=== PATIENT | male | born 1965 | race Caucasian/White ===

== ENCOUNTER 2018-06-05 13:00 | Outpatient (RCR) | payer MEDICAID, SELFPAY ==
--- NOTE | 2018-05-08 14:45 | PTTR_ITS ---
DATE: 05/08/18 SUBJECTIVE: Patient reports he feels like he is 50% better since starting PT. His pain in now centralized to his lower back over L4-L5 segments. He rates his pain as a 3-4/10. When arrived to session patient was seated slouched over with majority of weight on his left side. Instructed to sit with even weight distribution and maintain upright posture. Says he has been compliant with his HEP. Has follow up appointment with PCP on SaturdayMay 12. OBJECTIVE: Manual therapy: ([id number]). Performed hamstring, single knee to chest, piriformis, ITB stretches right leg in supine. Quadriceps and hip flexor stretches in prone. Grade 2 P-A mobilizations lower lumbar segments. STM bilateral lumbar region lower back and gluteal musculature. Therapeutic procedures ([id number]). [X] HEP review: Reviewed prone on elbows and posterior pelvic tilts to ensure proper technique. Patient requires cues for TA activation during posterior pelvic tilts and to keep neck relaxed down on pillow. [X] See flow sheet: Focused on core stabilization exercises. [X] Provided skilled instruction in proper exercise performance: [X] Provided skilled manual cues to facilitate proper muscle recruitment and/or movement pattern: Requires cues to maintain posterior pelvic tilt when performing supine walk outs and cues to keep breathing. Moist heat pack to lower back with cold spot over lower lumbar segments x 12 minutes post session. Plan to continue progressing core stabilization program for patient to be able to return to previous level of function. Direct treatment time: 35 minutes Total treatment time: 47 minutes Nadia Brown, SPT Laxmi Rich, MPT
--- NOTE | 2018-05-12 15:25 | NT_ITS ---
05/12/18 No show for today's scheduled PT treatment. Alyssa Jarrett, PERFORMANCE ENGINEER
--- NOTE | 2018-05-13 09:53 | PTTR_ITS ---
DATE: 05/13/18 SUBJECTIVE: Conor states that he is feeling a little better. He saw the MD yesterday and they felt as though an MRI is warranted. He has yet to be set up for an appt. He reported that he did not do much of his exercises and none of TREVOR due to a recent bout of diverticulitis. He is feeling better now. OBJECTIVE: Manual therapy: ([id number]). lumbopelvic ROM including SKTC and rotation in hooklying. LE distractions via leg pulls. Stretching of hamstrings, ITB and piriformis in various positions. He went into prone and received STM t/o low back and buttock region focusing on the right. CFM over pelvic brim, sacral border. PRT's over right iliocostalis lumborum. PA mobs of lumbar spine. He performed some TREVOR. I applied kinesiotape to right iliocostalis lumborum using Y technique. * x Ultrasound - (x 8 mins) - [id number]: to right upper buttock at 1.0 w/cm2, 1 MHZ. ended with spot cold and MHP to low back x 10 min. Direct treatment time: 30 min Total treatment time: 40 min.
--- NOTE | 2018-05-15 14:30 | PTTR_ITS ---
DATE: 05/15/18 SUBJECTIVE: Patient reports his symptoms are still centralized to his right lower back but he is having a lot of pain. No symptoms down the leg at all. States he has been compliant with his HEP. Had difficulty sleeping last night because he could not find a comfortable position. He said he did not feel like the tape applied at last session made a difference. He reports that it did not stay on for very long. He has another follow up MD appointment in 2 weeks will proceed with MRI at that time if no improvements made. OBJECTIVE: Manual therapy: ([id number]). Stretching right single knee to chest, hamstrings, piriformis, ITB, and hip flexors/quads in modified Carlton position. STM to right lower back and along pelvic brim. Therapeutic procedures ([id number]). [X] See flow sheet: Continued with core stabilization program. [X] Provided skilled instruction in proper exercise performance: [X] Provided skilled manual cues to facilitate proper muscle recruitment and/or movement pattern: Patient still requires cues not to flex his neck and to breathe while performing posterior pelvic tilts. Patient reminded about the importance of completing HEP. Moist heat pack to lower back with cold spot to right lower back x 12 minutes post session. Plan to do aquatic therapy 2 times next week and then follow up the following week for reassessment to promote core activation and decompression of the spine. Direct treatment time: 30 minutes Total treatment time: 42 minutes Nadia Brown, SPT Laxmi Rich,MPT Addendum: Post session as patient was leaving dept he stubbed his foot causing him to slightly stumble. No fall was sustained. Patient reported no injury or irritation.
--- NOTE | 2018-05-20 11:03 | PTTR_ITS ---
DATE: 05/20/18 OBJECTIVE: * [X] Aquatic Therapy - (39984 x2): Patient completed a therapeutic exercise program in an aquatic setting for LE strengthening and core stabilization with decompression for pain relief, as per flow sheet. Pateint required cuing to maintain core activation and appropriate posture throughout session. Patient required skilled instruction for proper exercise performance and to avoid compensatory movement patterns. Patient ends with biking and traction. Direct treatment time: 30 minutes Total treatment time: 40 minutes
--- NOTE | 2018-05-22 15:44 | PTTR_ITS ---
DATE: 05/22/18 SUBJECTIVE: Conor states that he was sore following his last aquatic therapy session, but not significantly more sore than usual. OBJECTIVE: * [X] Aquatic Therapy - (00398 x1): Patient completed a therapeutic exercise program in an aquatic setting for general strengthening with decompression for pain relief, as per flow sheet. Patient was able to tolerate a progression in his program today, see flow sheet for modifications made to reps and resistance. Patient continues to require cuing for posture and appropriate movement mechanics. Patient ends with deep end biking, LE flex/ext , LE abd/add, and traction. Direct treatment time: 20 minutes Total treatment time: 40 minutes
--- NOTE | 2018-05-27 12:33 | PTTR_ITS ---
DATE: 05/27/18 SUBJECTIVE: Conor states that he had a follow up with primary therapist, Laxmi Rich, and requested to continue coming to the pool, as he feels it is helping with his pain and discomfort. OBJECTIVE: * [X] Therapeutic Procedures - (33185 x1): Patient completed a therapeutic exercise program in an aquatic setting for global strengthening and general conditioning with decompression for pain relief, as per flow sheet. He was able to tolerate a progression in his program today, with good tolerance. Patient required skilled instruction for for proper exercise performance and to avoid compensatory movement patterns. Patient ends with deep end biking, DKTC, LE flex/ext, and LE abd/add. Direct treatment time: 20 minutes Total treatment time: 45 minutes
--- NOTE | 2018-05-27 12:55 | PTTR_ITS ---
DATE: 05/27/18 SUBJECTIVE: Conor reports he feels he has improved about 50% since his evaluation. He continues to note LBP which radiates into the right leg. He has good days in the right leg, and then it will be more central to the low back. When his low back is not bothering the right leg will be more aggravating. Symptoms remain up and down. He reports that since starting the pool that he gets a good two days of relief. He feels the pool provides good symptom relief with the decompression, and feels he is able to move about in the water with much less irritation. He remains limited in his daily tasks, including lifting and gardening. He remains out of work, going on his 7th week. He is now fighting to get workman's comp, as this did happen at work. He tried to go with his private insurance initially, as he did not realize how long he'd be out. He reports they have declined a MRI. They would like him to continue with P.T. He does feel he is making gains. Is reporting (-) bowel or bladder involvement, (-) tingling / numbness. Pain is into the right sided low back, down the right leg to his ankle, but not into the foot. OBJECTIVE: Upon reassessment: ROM: Demonstrates active forward bend, fingertips 6 from the floor. Extension is limited to 15 with increased right sided LBP. Side bending is to the lateral joint lines bilaterally. Rotation is equal and symmetrical. AA LE ROM is WNL. Strength: Upon strength assessment, gross LE myotomes, hip flexors 5/5, hip extensors 4/5, hip abductors 4/5, external rotators 5/5, knee extensors 4/5 with increased pain on the right; 5/5 on the left, flexors 5/5, dorsiflexors and plantar flexors 5/5 and he is able to heel and toe walk without dysfunction. Neuro: Sensation is intact to light touch. DTRs 2+ and symmetrical at Achilles and slightly diminished at the patella on the right.and 2+ on the left. Special testing: SLR on the right limited to 45 with dural tension. Slump also irritating on the right with dural tension. (-) kaia. Manual therapy: ([id number]). Reassessment. LE distractions via leg pull. Mulligan style SLR to the right. Soft tissue mobs throughout the low back and pelvic brim. Trigger point release into the lumbar paraspinals, glute medius, glute get right sided, PA mobs at a Grade 2 lumbar levels and continued education in use of a lumbar roll. He is remove his wallet from his back pocket to reduce deviation of the spine while seated. He will continue with the aquatic program due to significant benefits and promote a walking program at home to his tolerance. Continued emphasis will be on TA activation. He was going to attend aquatic therapy post today's treatment. Direct treatment time: 30 minutes Total treatment time: 30 minutes Declined the need for modalities post session. Assessment: Conor continues to present with right sided sciatica. Increased dural tension compared to time of I.E. on the right side. Continues to present with ROM restrictions. Remains out of work. Is benefitting from the aquatic program. Will continue, at this time, for decompression, core stabilization , global strengthening, increasing his walking program to tolerance. Will reassessment Conor x2 weeks in clinic. He will continue to have regular follow ups with his PCP. Will proceed with the MRI if no improvement is seen. Plan: Continue 2x per week in the aquatic setting for the next 2 weeks. Will reassess, at that time, progressing with core stabilization, functional endurance, mobility and centralization of symptoms. Conor agrees. We will continue per M.D. order with further intervention if we see no improvements. HOLLY/travis
--- NOTE | 2018-05-29 08:53 | PTTR_ITS ---
DATE: 05/29/18 SUBJECTIVE: Conor apologizes that he is 20 minutes late today. He states that was very sore right after his aquatic therapy session on Saturday. OBJECTIVE: * [X] Therapeutic Procedures - (08348 x1): Patient completed a therapeutic exercise program in an aquatic setting for core stabilization and general strengthening, as per flow sheet. Patient tolerated a slight progression in his program today, modifications made to reps are noted on flow sheet. Patient required cuing for core activation and appropriate posture throughout session. Patient ends with deep water biking, DKTC, LE abd/add, and LE flex/ext. Direct treatment time: 15 minutes Total treatment time: 40 minutes
--- NOTE | 2018-06-03 10:57 | AT_ITS ---
06/03/18 TPx1 See flow sheet for documentation of core strengthening exercises with in an aquatic environment utilizing upper and lower extremity dynamic movements to challenge core stability with skilled cueing throughout for proper core activation. Total time: 45 minutes Direct 20 minutes with pt able to carry out his activities once instructions with intermittent cueing for proper movement.
--- NOTE | 2018-06-05 08:15 | AT_ITS ---
06/05/18 SUBJECTIVE: Pt notes that his back is pretty sore and the pain is going down the left leg. He is really frustrated with how he is feeling. He does feel better when he is in the pool although this is short lasting. OBJECTIVE: Aquatics Therapy [id number]: Pt completes his therex program as noted on his flow sheet for general strength and conditioning with emphasis on core stabilization throughout. Skilled cueing provided for appropriate movement mechanics and muscle activation. See flow sheet for specifics. Direct time: 20 minutes one on one skilled cueing requires. Total time: 50 minutes- remaining time spent on less skilled activities and cardiovascular/decompression efforts in the deep end. Meghna Soto, TAN ROOM SUPERVISOR
== END 2018-06-06 23:59 | disposition home or self-care (01) ==
LOC: PT 13:00
PROVIDERS: PCP Internal Medicine; Referring Provider Family Medicine; Visit Provider Family Medicine
DX: G57.01 Lesion of sciatic nerve, right lower limb (principal)
CPT/HCPCS: 97035; 97110; 97113; 97140

== ENCOUNTER 2018-06-26 00:56 | Outpatient (CLI) | payer MEDICAID, SELFPAY ==
--- NOTE | 2018-06-26 09:38 | DI.MRI_ITS ---
SYMPTOMS/DIAGNOSIS: CONSTANT SEVERE PAIN WITH DECREASED PATELLAR REFLEX, LUMBAR RADICULOPATHY RT, M54.16 LUMBAR SPINE MRI: Sagittal T 1 and T 2 and STIR and axial T 1 and T 2 and axial T 2 MSMA and coronal T 1 pulse sequences were performed. There is no evidence of a fracture or subluxation. A small area of increased signal is noted in the body of L 2 consistent with a fatty rest or hemangioma. Increased signal is noted involving the endplates at L 5 - S 1 and there is evidence of degenerative disc disease and a right sided disc herniation. At L 1 - 2 the disc is normal. There is no evidence of spinal stenosis. At L 2 - 3 there is some diminished disc signal consistent with partial desiccation. There is no disc herniation. There is no evidence of spinal stenosis. At L 3 - 4 a small symmetrical disc herniation is demonstrated and an annular tear is identified. There is moderately severe facet joint DJD. There is no evidence of significant spinal stenosis. At L 4 - 5 a small central disc herniation is demonstrated. There are rather severe facet joint degenerative changes and moderate bilateral foraminal stenosis is identified more severe on the left side. At L 5 - S 1 loss of disc height and diminished signal and a right sided disc herniation is identified which in combination with facet joint DJD results in bilateral severe foraminal stenosis. There is no intrinsic abnormality involving the lower dorsal cord, conus or filum terminale. SUMMARY: Findings consistent with degenerative disc disease and DJD. The findings are most severe at L 5 - S 1 where a right sided disc protrusion is demonstrated. There is severe facet joint DJD and bilateral foraminal stenosis. Please see the above discussion.
== END 2018-06-26 01:16 ==
PROVIDERS: PCP Internal Medicine; Visit Provider Family Medicine
DX: M51.17 Intervertebral disc disorders with radiculopathy, lumbosacral region (principal); M47.27 Other spondylosis with radiculopathy, lumbosacral region
CPT/HCPCS: 72148

== ENCOUNTER 2018-11-04 13:08 | Outpatient (CLI) | payer MEDICAID, SELFPAY ==
[2018-11-04 13:38] LABS: Abs Immature Grans 0.01 k/cumm (0.0-0.09); Absolute Basophil Count 0.02 k/cumm (0.0-0.2); Absolute Eosinophil Count 0.32 k/cumm (0.0-0.7); Absolute Monocyte Count 0.63 k/cumm (0.11-0.7); Absolute Neutrophil Count 2.97 k/cumm (1.2-6.7); Basophils % 0.3; Eosinophils % 5.6; HCT 43.3 % (40.0-50.0); HGB 15.1 g/dL (13.5-17.5); Immature Grans % 0.2; Lymphocytes % 31.3; Mean Corp. HGB Concentration 34.9 g/dL (32.0-36.0); Mean Corpuscular Hemoglobin 30.1 pg (27.0-33.0); Mean Corpuscular Volume 86.3 fL (80-95); Mean Platelet Volume 9.2 fL (8.0-11.0); Neutrophils % 51.6; Platelet Count 254 x1000/uL (130-400); RBC 5.02 m/cumm (4.50-6.00); RBC Distribution Width 13.1 % (11.8-14.1); White Blood Cell Count 5.75 k/cumm (4.4-10.8)
[2018-11-04 14:18] LABS: ALT 65 U/L (12-78); AST 30 U/L (15-37); Albumin 4.1 g/dL (3.4-5.0); Alkaline Phosphatase 56 U/L (46-116); Anion Gap 11.5 mmol/L (3-11); BUN 19 mg/dL (7-18); Bilirubin, Total 0.4 mg/dL (0.2-1.0); CO2 25.5 mmol/L (21.0-32.0); CREATININE 0.97 mg/dL (0.70-1.30); Calcium 9.5 mg/dL (8.5-10.1); Chloride 102 mmol/L (98-107); Glucose 139 mg/dL (70-100); Potassium 4.1 mmol/L (3.5-5.1); Sodium 139 mmol/L (136-145); Total Protein 7.4 g/dL (6.4-8.2)
== END 2018-11-04 13:28 ==
PROVIDERS: PCP Internal Medicine; Visit Provider Neurological Surgery
DX: I10 Essential (primary) hypertension (principal); M51.27 Other intervertebral disc displacement, lumbosacral region; M54.9 Dorsalgia, unspecified; Z01.818 Encounter for other preprocedural examination; Z00.00 Encounter for general adult medical examination without abnormal findings
CPT/HCPCS: 36415; 80053; 85025

== ENCOUNTER 2019-12-21 11:14 | Emergency (ER) | payer MEDICAID, SELFPAY ==
[2019-12-21] VITALS (69 sets, daily range): BP systolic 123–157; BP diastolic 76–102; PULSE 61–101; RESP 11–23; TEMP 36.6–36.9; O2SAT 89–100
--- NOTE | 2019-12-21 11:15 | ED.GENADUL_ITS ---
Discharge Plan Disposition Patient Disposition: HOME Condition: Stable Discharge Details Chief Complaint: SOB Clinical Impression: Shortness of breath, Chest pain Primary Care Provider: Deanna Edwards ED Provider: Milind Chapman Home Meds and New Rx's Prescriptions: Continued lisinopril 40 mg tablet 40 mg PO DAILY Qty: 60 RF: 4 amlodipine 5 mg tablet 5 mg PO DAILY Qty: 60 RF: 3 Discharge Instructions Instructions: Dyspnea (ED) Additional Instructions: Please return immediately to the emergency department if you develop any new or worsening symptoms, if your condition does not improve as expected, or if you become otherwise concerned. It is extremely important that you call soon as possible to make an appointment to be seen in follow-up for this visit by your primary care doctor. At this time your symptoms are concerning for coronavirus. It takes 48 to 72 hours for the test results to return. You will be contacted by [facility] staff when your results return. If you do not hear from them in 48 to 72 hours, please contact [facility]. Out of an abundance of precaution it is highly recommended that you self quarantine yourself for a total of 14 days or until symptom-free for greater than 24 to 48 hours. It would be prudent to wear a mask at all times, always wash her hands frequently, and follow-up closely with your primary care provider. It is recommended that you call your primary care provider prior to reassessment. If you are going to a health facility, please call/contact them before you arrive. At this time based on your current symptoms the CDC does not recommend admission, and there is no current clinical indication for your admission here at the hospital. However it is vitally important to monitor your symptoms closely, and if you notice any worsening of your symptoms, or any new symptoms such as worsening shortness of breath, difficulty breathing, persistent fever, worsening chills, chest pain, numbness, weakness, or fainting please call and then return immediately to the emergency department for reevaluation. Please call your primary care provider as soon as possible to make them aware of your current situation and for continued monitoring. As always, it was a pleasure participating in your medical care today. Conservative management would recommend a stress test be performed ideally wi thin the next 72 hours. Please follow-up with your primary care physician. Call tomorrow to arrange timely follow-up. Stand Alone Forms: PENDING COVID-19 TESTING, Work Release Referrals: Deanna Edwards MD [Primary Care Provider] - Discharge Data Discharge Date/Time-TO BE ENTERED AT DEPARTURE: 12/21/19 18:55 Medical Decision Making <Judi Chapman MD - Last Filed: 12/28/19 07:44> Conor Kahn is a 54 y/o man with history of hypertension, hyperlipidemia who presented to the emergency department with sharp right-sided chest pain present only with deep breathing and shortness of breath since approximately 7 AM this morning. On exam patient is well and nontoxic-appearing. Normal work of breathing. Scant wheeze bilateral upper lobes, otherwise normal lung auscultation. Hypoxia 92% on room air. No posterior calf tenderness to palpation or lower extremity edema. Concern for pneumothorax, pulmonary embolism, occult pneumonia, other respiratory infection, less likely ACS. Exam/history is not consistent with sepsis, acute aortic pathology. Plan for EKG, chest x-ray, screening labs, albuterol inhaler 2 puffs, IV, telemetry. Will monitor and reassess. CXR neg. Labs non-diagnostic, neg trop, neg d-dimer. O2 sat 95% on 2LNC. Plan for CT chest. CT chest neg over the phone per radiology. Unclear etiology of symptoms at this time. Will await troponin. Possible reactive airway disease, patient is a smoker, however sudden onset and patient reports no history of ever having prior similar symptoms. Plan to test for COVID-19. The patient looks notably clinically well, and does not demonstrate evidence of respiratory distress, significant or severe illness, or sepsis. Per CDC recommendations, coronavirus testing has been performed and is approved by the [facility]. Additionally patient currently does not demonstrate symptoms indicative of admission or further observation here. At this time based on the patient's current clinical picture symptoms are likely secondary to a non-coronavirus viral illness. Out of an abundance of precaution taking into account the cu rrent level of national concern, the patient's entire clinical picture, and CDC recommendations, the patient can be discharged home pending repeat troponin. Per CDC recommendations we will recommend a 14-day quarantine of the patient I have discussed good handwashing techniques, the importance of a mask, and we have also included CDC recommendations for home monitoring and isolation. I have extensively reviewed the treatment plan and discharge instructions with the patient. I have addressed all patient concerns at this time. The patient was made aware of what symptoms to monitor for that would warrant a return to the emergency department. I also discussed the importance of calling the patient's PCP, as well as the ED for any concerns or prior to return. Discussed the plan with the patient, they demonstrate verbal understanding and agreement with our assessment and plan at this time. Patient signed out to Dr. Milind Chapman at time of shift change with ambulatory pulse ox, repeat troponin pending. Medical Records Medical records reviewed: Yes I reviewed the patient's medical records. Imaging Data Radiologic Study: Attestation: I personally reviewed and interpreted this imaging study as follows: Radiologist's impression: EXAM: XR PORTABLE CHEST AP CLINICAL HISTORY: SOB TECHNIQUE: 2D digital imaging was performed. COMPARISON: CHEST 2 VIEWS PA,LAT from 05/21/2016 FINDINGS: MEDIASTINUM: Normal. HEART: Normal. PULMONARY VASCULATURE: Normal. LUNGS: No focal consolidations. Stable scarring in the left lower lobe. PLEURAL SPACE: No pleural effusion or pneumothorax. BONE:Normal. OTHER FINDINGS:There is poor inspiration. IMPRESSION: No acute pulmonary findings. Lab Data Lab results reviewed: Yes I reviewed the patient's lab results. Labs: 12/21/19 13:50 Nasopharynx Influenza Types A,B Antigen - Final Laboratory Tests Range/Units 12/21/19 12/21/19 12/21/19 11:20 11:20 11:20 WBC (4.4-10.8) k/cumm 5.34 RBC (4.50-6.00) m/cumm 4.93 Hgb (13.5-17.5) g/dL 14.5 Hct (40.0-50.0) % 43.5 MCV (80-95) fL 88.2 MCH (27.0-33.0) pg 29.4 MCHC (32.0-36.0) g/dL 33.3 RDW (11.8-14.1) % 13.7 Plt Count (130-400) x1000/uL 321 MPV (8.0-11.0) fL 9.0 Immature Gran % % 0.2 Neutrophils % 53.5 Lymphocytes % 31.1 Monocytes % 10.5 Eosinophils % 4.3 Basophils % 0.4 Absolute Neutrophils (1.2-6.7) k/cumm 2.86 Absolute Lymphocytes (1.2-3.4) k/cumm 1.66 Absolute Monocytes (0.11-0.7) k/cumm 0.56 Absolute Eosinophils (0.0-0.7) k/cumm 0.23 Absolute Basophils (0.0-0.2) k/cumm 0.02 D-Dimer (<500) ng/mlFEU 276 Sodium (136-145) mmol/L 139 Potassium (3.5-5.1) mmol/L 3.8 Chloride (98-107) mmol/L 103 Carbon Dioxide (21.0-32.0) mmol/L 26.6 Anion Gap (3-11) mmol/L 9.4 BUN (7-18) mg/dL 18 Creatinine (0.70-1.30) mg/dL 0.94 Estimated GFR/1.73 m2 (mL/min/1.73m2) >= 60.00 Glucose (74-106) mg/dL 137 H Calcium (8.5-10.1) mg/dL 8.9 Total Bilirubin (0.2-1.0) mg/dL 0.3 AST (15-37) U/L 24 ALT (16-63) U/L 38 Alkaline Phosphatase (46-116) U/L 57 Troponin I (<0.06) ng/Ml < 0.05 NT-Pro-B Natriuret Pep (<300) pg/mL Total Protein (6.4-8.2) g/dL 7.7 Albumin (3.4-5.0) g/dL 4.2 Range/Units 12/21/19 12/21/19 11:20 14:40 WBC (4.4-10.8) k/cumm RBC (4.50-6.00) m/cumm Hgb (13.5-17.5) g/dL Hct (40.0-50.0) % MCV (80-95) fL MCH (27.0-33.0) pg MCHC (32.0-36.0) g/dL RDW (11.8-14.1) % Plt Count (130-400) x1000/uL MPV (8.0-11.0) fL Immature Gran % % Neutrophils % Lymphocytes % Monocytes % Eosinophils % Basophils % Absolute Neutrophils (1.2-6.7) k/cumm Absolute Lymphocytes (1.2-3.4) k/cumm Absolute Monocytes (0.11-0.7) k/cumm Absolute Eosinophils (0.0-0.7) k/cumm Absolute Basophils (0.0-0.2) k/cumm D-Dimer (<500) ng/mlFEU Sodium (136-145) mmol/L Potassium (3.5-5.1) mmol/L Chloride (98-107) mmol/L Carbon Dioxide (21.0-32.0) mmol/L Anion Gap (3-11) mmol/L BUN (7-18) mg/dL Creatinine (0.70-1.30) mg/dL Estimated GFR/1.73 m2 (mL/min/1.73m2) Glucose (74-106) mg/dL Calcium (8.5-10.1) mg/dL Total Bilirubin (0.2-1.0) mg/dL AST (15-37) U/L ALT (16-63) U/L Alkaline Phosphatase (46-116) U/L Troponin I (<0.06) ng/Ml < 0.05 NT-Pro-B Natriuret Pep (<300) pg/mL 138 Total Protein (6.4-8.2) g/dL Albumin (3.4-5.0) g/dL ECG Data Attestation: I personally reviewed and interpreted this ECG (s) as follows: Interpretation: EKG shows sinus rhythm at 98, normal axis, no STEMI, nondiagnostic EKG <Milind Chapman MD - Last Filed: 12/21/19 22:39> 16:00 --care signed out by Dr. Penny Chapman with plan to follow-up repeat troponin and reassess patient for disposition. Repeat troponin negative. Repeat ECG was reviewed and interpreted by me: Subtle biphasic T waves noted V2 and V1, these were not present on prior ECG from 1120 this morning. Patient reassessed and continues to have focal, pleuritic, chest discomfort left anterior lateral lower chest. Plan will be to continue to observe patient for any change in symptomatology. I will repeat ECG and troponin. 18:25 --repeat ECG reviewed and interpreted by me: Sinus rhythm 63 bpm, no change from second ECG. Third troponin negative and unchanged. Patient is remained stable. I do not believe he has ACS. Plan will be for outpatient follow-up with PCP and will recommend stress test to expedite outpatient work- up. Usual and customary discharge instructions were provided and discussed with the patient. Imaging Data Radiologic Study: Imaging: CT Scan (chest) Radiologist's impression: FINDINGS: Pulmonary Arteries: No evidence of filling defect to suggest pulmonary emboli. Tracheobronchial tree: Patent where visualized. Mediastinum and Madison: No dominant adenopathy or fluid collection. Pulmonary parenchyma: No consolidation or dominant measurable mass. No architectural distortion. There are dependent atelectatic changes in the lung bases. Pleura: No effusion or pneumothorax. Heart: The heart is not dilated. No coronary artery calcifications are seen. No pericardial effusion. Aorta: Thoracic aorta non-dilated. No dissection Upper abdomen: Unremarkable. Bones: Mild degenerative changes. IMPRESSION: No evidence of pulmonary embolism, thoracic aortic dissection or aneurysm. Findings were discussed with the emergency department on the date of the examination. DATA REPOSITORY: All CT scans at this facility are submitted to the National Radiology Data Registry (NRDR) Dose Index Registry (DIR) with the [employer] (ACR). RADIATION OPTIMIZATION: All CT scans at this facility use at least one of these dose optimization techniques: automated exposure control; mA and/or kV adjustment per patient size (includes targeted exams where dose is matched to clinical indication); or iterative reconstruction. HPI <Judi Chapman MD - Last Filed: 12/28/19 07:44> General Mode of arrival: ambulatory . Date/Time Provider Initiated Documentation: 12/21/19 11:15 . Limitations to Documentation: no limitations . Information obtained by: patient, RN notes reviewed and old records reviewed . HPI Narrative: Conor Kahn is a 54 y/o man with history of hyperlipidemia, hypertension presenting to the emergency department with shortness of breath and chest pain. Patient reports that at approximately 7 AM this morning he began to feel sharp pain in his left chest, only present with deep breathing. Patient reports that he feels somewhat short of breath, worse with exertion. He reports that at rest he does not feel short of breath but feels like he could not take a deep breath if he wanted to. He denies any other pain. No trauma. He denies fever, cough, vomiting, diarrhea, numbness, weakness, rash, recent travel, known sick contacts, recent immobilization. Never had similar symptoms in the past. Has been eating and drinking as usual. Patient reports he smokes approximately half a pack of cigarettes per day, has smoked for 40 years. Related Data Home Medications Medication Instructions Recorded Confirmed lisinopril 40 mg tablet 40 mg PO DAILY #60 tab 09/21/19 12/25/19 amlodipine 5 mg tablet 5 mg PO DAILY #60 tab 12/09/19 12/25/19 Previous Rx's Medication Instructions Recorded lisinopril 40 mg tablet 40 mg PO DAILY #60 tab 09/21/19 amlodipine 5 mg tablet 5 mg PO DAILY #60 tab 12/09/19 Allergies Allergy/AdvReac Type Severity Reaction Status Date / Time codeine Allergy Skin Rash Unverified 12/25/19 11:08 Review of Systems <Judi Chapman MD - Last Filed: 12/28/19 07:44> Narrative: Constitutional: denies fevers Eyes: denies eye pain ENT: denies ear pain, dental pain, sore throat Cardiovascular: denies chest pain, edema Respiratory: denies cough, reports shortness of breath GI: denies abdominal pain, vomiting, diarrhea : denies flank pain MSK: denies back pain, neck pain, arthralgias, myalgias Skin: denies rash Neuro: denies headaches, numbness, weakness PFSH <Judi Chapman MD - Last Filed: 12/28/19 07:44> Medical History History of diverticulitis of colon Serrated adenoma of colon rectum 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 Pets and animals: Yes Pets and animals: cat(s) and dog(s) Sexually active: No Do you think of yourself as: straight/heterosexual Current gender identity: male What is your relationship status?: How often do you talk on the phone with friends or family?: three or more times per week How often do you get together with friends or relatives?: twice per week How often do you attend rastafarian or yarsani services?: decline to answer Do you belong to any clubs or organized social groups?: yes Panel score (0-1 are the most socially isolated patients): 3 What type of physical activity do you participate in: none Haylie/Anglican: Presybeterian Special haylie needs: No Seatbelt use: always Helmet use: Yes Helmet use: always Drive intox or ride w/intox local city driver: No Do you feel safe at home: Yes Do you feel safe in your relationship?: Yes Exam <Judi Chapman MD - Last Filed: 12/28/19 07:44> Narrative Exam Narrative: Constitutional: well and [id number], pleasant, conversing normally HENT: head atraumatic/normocephalic/normal inspection, mucous membranes moist Eyes: conjunctiva normal, sclera normal, pupils 3mm b/l Neck: no stridor, normal ROM, trachea midline Chest: normal inspection Resp: normal work of breathing, scant wheeze bilateral upper lobes, lungs otherwise clear to auscultation bilaterally, good air movement bilaterally Cardio: normal rate, normal rhythm, no murmur appreciated Back: normal inspection, no rash Skin: warm, dry, normal color, no rash Neuro: alert, not altered, grossly non-focal, normal tone Ext: no edema, no posterior calf tenderness to palpation Psych: normal mood, normal affect, normal behavior Sign Out <Judi Chapman MD - Last Filed: 12/28/19 07:44> Sign Out Data: Sign Out Comment: Patient signed out to Dr. Milind Chapman at time shift change pending repeat troponin, reassessment. Last updated by Judi Chapman MD at 12/21/19 15:21
--- NOTE | 2019-12-21 11:30 | DI.RAD_ITS ---
EXAM: XR PORTABLE CHEST AP CLINICAL HISTORY: SOB TECHNIQUE: 2D digital imaging was performed. COMPARISON: CHEST 2 VIEWS PA,LAT from 05/21/2016 FINDINGS: MEDIASTINUM: Normal. HEART: Normal. PULMONARY VASCULATURE: Normal. LUNGS: No focal consolidations. Stable scarring in the left lower lobe. PLEURAL SPACE: No pleural effusion or pneumothorax. BONE:Normal. OTHER FINDINGS:There is poor inspiration. IMPRESSION: No acute pulmonary findings. DATA REPOSITORY: RADIATION DOSE DELIVERED:
[2019-12-21 11:43] LABS: Abs Immature Grans 0.01 k/cumm (0.0-0.09); Absolute Basophil Count 0.02 k/cumm (0.0-0.2); Absolute Eosinophil Count 0.23 k/cumm (0.0-0.7); Absolute Lymphocyte Count 1.66 k/cumm (1.2-3.4); Absolute Monocyte Count 0.56 k/cumm (0.11-0.7); Absolute Neutrophil Count 2.86 k/cumm (1.2-6.7); Basophils % 0.4; Eosinophils % 4.3; HCT 43.5 % (40.0-50.0); HGB 14.5 g/dL (13.5-17.5); Immature Grans % 0.2 %; Lymphocytes % 31.1; Mean Corp. HGB Concentration 33.3 g/dL (32.0-36.0); Mean Corpuscular Hemoglobin 29.4 pg (27.0-33.0); Mean Corpuscular Volume 88.2 fL (80-95); Monocytes % 10.5; Neutrophils % 53.5; Platelet Count 321 x1000/uL (130-400); RBC 4.93 m/cumm (4.50-6.00); RBC Distribution Width 13.7 % (11.8-14.1); White Blood Cell Count 5.34 k/cumm (4.4-10.8)
[2019-12-21] MEDS: Albuterol HFA 8 GM 60 PUFF INH IH ×2 (11:47→14:01)
[2019-12-21 12:06] LABS: ALT 38 U/L (16-63); AST 24 U/L (15-37); Albumin 4.2 g/dL (3.4-5.0); Alkaline Phosphatase 57 U/L (46-116); Anion Gap 9.4 mmol/L (3-11); BUN 18 mg/dL (7-18); Bilirubin, Total 0.3 mg/dL (0.2-1.0); CO2 26.6 mmol/L (21.0-32.0); CREATININE 0.94 mg/dL (0.70-1.30); Calcium 8.9 mg/dL (8.5-10.1); Chloride 103 mmol/L (98-107); Glucose 137 mg/dL (74-106); Potassium 3.8 mmol/L (3.5-5.1); Sodium 139 mmol/L (136-145); Total Protein 7.7 g/dL (6.4-8.2); Troponin I < 0.05 ng/Ml (<0.06)
[2019-12-21 12:12] LABS: NT-proBNP 138 pg/mL (<300)
--- NOTE | 2019-12-21 12:15 | DI.CT_ITS ---
EXAM: CT CHEST PE CTA CLINICAL HISTORY: SOB, left chest pain. TECHNIQUE: Imaging Protocol: Axial CT angiography was performed with multi-slice acquisition and mu lti-planar and/or 3D reconstructions. CONTRAST MATERIAL: Intravenous: Omnipaque 350 Contrast volume:84 mL COMPARISON: ABD PELVIS WITH CONTRAST from 04/30/2011 FINDINGS: Pulmonary Arteries: No evidence of filling defect to suggest pulmonary emboli. Tracheobronchial tree: Patent where visualized. Mediastinum and Madison: No dominant adenopathy or fluid collection. Pulmonary parenchyma: No consolidation or dominant measurable mass. No architectural distortion. Ther e are dependent atelectatic changes in the lung bases. Pleura: No effusion or pneumothorax. Heart: The heart is not dilated. No coronary artery calcifications are seen. No pericardial effusion. Aorta: Thoracic aorta non-dilated. No dissection Upper abdomen: Unremarkable. Bones: Mild degenerative changes. IMPRESSION: No evidence of pulmonary embolism, thoracic aortic dissection or aneurysm. Findings were discussed with the emergency department on the date of the examination. DATA REPOSITORY: All CT scans at this facility are submitted to the National Radiology Data Registry (NRDR) Dose Index Registry (DIR) with the [employer] (ACR). RADIATION OPTIMIZATION: All CT scans at this facility use at least one of these dose optimization te chniques: automated exposure control; mA and/or kV adjustment per patient size (includes targeted exa ms where dose is matched to clinical indication); or iterative reconstruction.
[2019-12-21 12:21] LABS: D-Dimer 276 ng/mlFEU (<500)
[2019-12-21] MEDS: Omnipaque 350 MG/ML 100 ML BTL IJ (13:08)
[2019-12-21] MEDS: Normal Saline - Diluent 50 ML VIAL IV (13:08)
[2019-12-21 15:11] LABS: Troponin I < 0.05 ng/Ml (<0.06)
--- NOTE | 2019-12-21 15:30 | NUR.NOTE ---
walked in ER with pulse ox. sats 95-96% R/A. HR mid 80'sNursing Note:
[2019-12-21 18:09] LABS: Troponin I < 0.05 ng/Ml (<0.06)
--- NOTE | 2019-12-21 18:26 | NUR.NOTE ---
Nursing Note: Referral faxed to PCP for follow up. Luanne Mueller.
[2019-12-23 08:03] LABS: COVID-19 RT-PCR Result Not Detected
== END 2019-12-21 18:55 | disposition home or self-care (01) ==
PROVIDERS: Student in an Organized Health Care Education/Training Program; Emergency Provider Student in an Organized Health Care Education/Training Program; PCP Internal Medicine
DX: R06.02 Shortness of breath (principal); R07.81 Pleurodynia; R09.02 Hypoxemia; I10 Essential (primary) hypertension; F17.210 Nicotine dependence, cigarettes, uncomplicated
CPT/HCPCS: 36415; 71275; 80053; 87449; 93005; 99285; U0003; 71045; 83880; 84484; 85025; 85379; 93010; J3490

== ENCOUNTER 2019-12-25 10:55 | Emergency (ER) | payer MEDICAID, SELFPAY ==
[2019-12-25 11:00] VITALS: BP 123/77; PULSE 67; RESP 20; TEMP 36.4; O2SAT 98
--- NOTE | 2019-12-25 11:15 | DI.RAD_ITS ---
EXAM: XR CHEST 2V PA LATERAL XR CHEST 2V PA LATERAL CLINICAL HISTORY: Left sided anterior chest pain, cough Left sided anterior chest pain, cough TECHNIQUE: 2D digital imaging was performed. COMPARISON: No exams were available for comparison FINDINGS: The heart is not enlarged. The lungs are clear and well expanded. No pleural effusion seen. Mediastin al contours appear intact. IMPRESSION: Normal chest
--- NOTE | 2019-12-25 11:20 | W.ED.GENAD ---
Discharge Plan Disposition Patient Disposition: HOME Condition: Stable Discharge Details Chief Complaint: SOB Clinical Impression: Acute costochondritis Primary Care Provider: Deanna Edwards ED Provider: Hui Cash Home Meds and New Rx's Prescriptions: New hydrocodone-acetaminophen 5-325 mg tablet 1 tab PO Q8H PRN (Reason: pain) 3 Days Qty: 7 RF: 0 Continued lisinopril 40 mg tablet 40 mg PO DAILY Qty: 60 RF: 4 amlodipine 5 mg tablet 5 mg PO DAILY Qty: 60 RF: 3 Discharge Instructions Instructions: Costochondritis (ED) Additional Instructions: Follow up with primary care provider in 3-5 days. Return to ED sooner if any worsening or concerns. Increase oral fluids. Take medications as directed. Return to the ED for any worsening pain, worsening shortness of breath, productive cough, fever nausea vomiting diarrhea. Splint side with coughing. Stay as active as possible, cough and deep breathe. Referrals: Deanna Edwards MD [Primary Care Provider] - Discharge Data Discharge Date/Time-TO BE ENTERED AT DEPARTURE: 12/25/19 13:19 Medical Decision Making 54-year-old male presents with left-sided anterior chest wall pain. Patient was seen here on and had a full work-up including chest CT, troponin, d-dimer and also was tested negative for the covid 19 virus which were all within normal limits. He does smoke and he does have a history of a cough. Pain is reproducible with palpation and increases with movement. He does have some right lower lobe wheezes. He reports cutting back on smoking and has had recent weight loss. Denies fever, productive cough, abdominal pain nausea vomiting diarrhea or any other symptoms. Due to the patient's extensive work-up 4 days ago, which was largely unremarkable EKG and chest x-ray are the only things ordered at this time. Patient does not report any worsening shortness of breath or fever no productive cough. EKG reviewed by Dr. Luiz ALBRIGHT no ectopy no STEMI, rate of 63 WV interval 132 QT/QTc 384/3 normal sinus rhythm. Old EKG reviewed no significant change from previous. TECHNIQUE: 2D digital imaging was performed. COMPARISON: No exams were available for comparison FINDINGS: The heart is not enlarged. The lungs are clear and well expanded. No pleural effusion seen. Mediastinal contours appear intact. IMPRESSION: Normal chest At this time I am diagnosing patient with costochondritis due to symptoms reproducible and increasing with movement. EKG shows no change from 4 days ago chest x-ray is within normal limits. Patient given prescription for hydrocodone and Tylenol as needed pain, and was given 500 mg Tylenol p.o. in department. Patient discharged with strict return instructions, verbalized understanding. Differential diagnosis includes [place], pneumonia, COPD, occult rib fracture, pneumothorax HPI General Mode of arrival: ambulatory. Date/Time Provider Initiated Documentation: 12/25/19 10:56. Limitations to Documentation: no limitations. Information obtained by: patient. HPI Narrative: 54-year-old male presents with left-sided anterior chest wall pain. Patient was seen here on and had a full work-up including chest CT, troponin, d-dimer and also was tested negative for the covid 19 virus which were all within normal limits. He does smoke and he does have a history of a cough. Pain is reproducible with palpation and increases with movement. He does have some right lower lobe wheezes. He reports cutting back on smoking and has had recent weight loss. Denies fever, productive cough, abdominal pain nausea vomiting diarrhea or any other symptoms. Related Data Home Medications Medication Instructions Recorded Confirmed lisinopril 40 mg tablet 40 mg PO DAILY #60 tab 09/21/19 12/25/19 amlodipine 5 mg tablet 5 mg PO DAILY #60 tab 12/09/19 12/25/19 hydrocodone-acetaminophen 1 tab PO Q8H PRN 3 Days #7 tab 12/25/19 Previous Rx's Medication Instructions Recorded lisinopril 40 mg tablet 40 mg PO DAILY #60 tab 09/21/19 amlodipine 5 mg tablet 5 mg PO DAILY #60 tab 12/09/19 hydrocodone-acetaminophen 1 tab PO Q8H PRN 3 Days #7 tab 12/25/19 Allergies Allergy/AdvReac Type Severity Reaction Status Date / Time codeine Allergy Skin Rash Unverified 12/25/19 11:08 General Stated Complaint: SOB NALLELY: 3 Review of Systems Narrative: Constitutional: Negative for weight loss, alert and oriented, well groomed, normal body habitus, appears comfortable. HEENT: Denies trauma, headaches, blurry vision, nasal discharge, sore throat, trouble swallowing. Chest: Denies palpitations, irregular rhythm, hypertension. Positive anterior left-sided chest pain. Respiratory: Denies Shortness of breath, hemoptysis. GI: Denies abdominal pain, nausea, vomiting, diarrhea, constipation. Positive cough. Is a smoker. : Denies dysuria, hematuria, flank pain, rectal bleeding. Neuro: Denies dizziness, blurry vision, weakness, syncope, headache or facial numbness. Hematologic: Denies easy bruising, intolerance to heat or cold, hair loss. FOR[facility]LY [facility] Medical History History of diverticulitis of colon Serrated adenoma of colon rectum Surgical History Colonoscopy - IV Sedation 2014 Colonoscopy - MAC (08/13/16) Family History Mother No problems noted. Father , age 75 No problems noted. Sister No problems noted. Sister No problems noted. Maternal Grandfather , age 78 No problems noted. Paternal Grandfather , age 82 No problems noted. Maternal Grandmother , age 74 No problems noted. Paternal Grandmother , age 70 No problems noted. Son No problems noted. Son No problems noted. 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 Pets and animals: Yes Pets and animals: cat(s) and dog(s) Sexually active: No Do you think of yourself as: straight/heterosexual Current gender identity: male What is your relationship status?: How often do you talk on the phone with friends or family?: three or more times per week How often do you get together with friends or relatives?: twice per week How often do you attend cheondoism or anabaptism services?: decline to answer Do you belong to any clubs or organized social groups?: yes Panel score (0-1 are the most socially isolated patients): 3 What type of physical activity do you participate in: none Haylie/Anabaptism: Hindu Special haylie needs: No Seatbelt use: always Helmet use: Yes Helmet use: always Drive 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 Appears stated age. Normal body habitus. Head: Normocephalic, no trauma. Eyes: Pupils PERRLA, Red reflex noted, EOM's intact. Eyelids symmetrical withour lesions, discharge, or swelling. ENT: Bilateral TM's WNL, External ear normal to inspection, no mastoid TTP, swelling, or erythema, Nasal turbinates WNL, no nasal discharge. Normal dentition, Posterior pharynx WNL, no exudate. Chest: RRR, Normal S1, S2, distal pulses intact. Resp: Expiratory wheezes noted to the right lower lobe, no rales, or rhonchi. Musculoskeletal: Normal gait, 5/5 strength to all four extremities. Left anterior chest wall tender to palpation no crepitus or step-off palpated. No peripheral edema. Skin: No suspicious rashes or lesions. Capillary refill less than 2 sec. Neurologic: Cranial nerves II-XII intact. Alert and oriented x 3. DTR's intact. Hematologic/Lymphatic: No ecchymosis, no lymphadenopathy. Course Vital Signs Vital signs: Vital Signs Temperature 36.4 C L 12/25/19 11:00 Pulse 67 12/25/19 11:00 Respiratory Rate 20 12/25/19 11:00 Blood Pressure 123/77 12/25/19 11:00 Pulse Oximetry 98 12/25/19 11:00 Temperature 36.4 C L 12/25/19 11:00 Temperature Source Skin 12/25/19 11:00 Pulse 67 12/25/19 11:00 Respiratory Rate 20 12/25/19 11:00 Respiratory Effort 12/25/19 11:09 Blood Pressure 123/77 12/25/19 11:00 Blood Pressure Position Supine 12/25/19 11:00 Pulse Oximetry 98 12/25/19 11:00 Oxygen Delivery Method Room Air 12/25/19 11:00 Oxygen Flow Rate 0 12/25/19 11:00 Pain Level 9 12/25/19 11:00 Comment 12/25/19 11:00
[2019-12-25 12:33] VITALS: RESP 24
[2019-12-25 12:43] VITALS: BP 122/94; PULSE 72; RESP 20; TEMP 36.5; O2SAT 98
[2019-12-25] MEDS: Acetaminophen 500 MG TAB PO (12:52)
== END 2019-12-25 13:19 | disposition home or self-care (01) ==
PROVIDERS: Emergency Provider Registered Nurse Emergency; PCP Internal Medicine
DX: M94.0 Chondrocostal junction syndrome [Tietze] (principal); F17.210 Nicotine dependence, cigarettes, uncomplicated
CPT/HCPCS: 93005; 99284; 71046; 93010

== ENCOUNTER 2021-03-24 02:41 | Outpatient (CLI) | payer MEDICAID, SELFPAY ==
[2021-03-24 12:58] LABS: CREATININE 0.9 mg/dL (0.70-1.30); Calculated LDL 149 mg/dL (<100); Cholesterol 246 mg/dL (<200); HDL Cholesterol 44 mg/dL (40-60); Potassium 4.3 mmol/L (3.5-5.1); Triglyceride 269 mg/dL (<150)
[2021-03-24 13:45] LABS: Hemoglobin A1C 5.6 % (<5.7)
[2021-03-24 21:57] LABS: PSA, Screening 1.2 ng/mL (0.0-3.5)
== END 2021-03-24 02:42 | disposition home or self-care (01) ==
LOC: LOS 02:41
PROVIDERS: PCP Nurse Practitioner; Visit Provider Nurse Practitioner
DX: E78.5 Hyperlipidemia, unspecified (principal); I10 Essential (primary) hypertension; Z13.1 Encounter for screening for diabetes mellitus
CPT/HCPCS: 36415; 80061; 84153; 82565; 83036; 84132

== ENCOUNTER 2022-03-06 06:07 | Day surgery (SDC) | payer MEDICAID, SELFPAY ==
[2022-03-06 06:23] VITALS: BP 148/92; PULSE 72; RESP 18; TEMP 36.5; O2SAT 96
[2022-03-06] MEDS: Lactated Ringers 1,000 ML 80 ML IV (06:44)
--- NOTE | 2022-03-06 06:47 | ANES.PREOP_ITS ---
General Info Date of Service Date Performed: 03/06/22 Height: 5 ft 9 in Weight: 114 kg Body Mass Index (BMI): 37.0 Surgical Procedure: Operation Date: 03/06/22 07:40 Proposed Procedure Side Surgeon p Wrist ECTR Left Dustin Leavitt MD Meds Allergies and Home Medications Allergies Allergy/AdvReac Type Severity Reaction Status Date / Time codeine Allergy Skin Rash Verified 03/01/22 11:39 Home Medication Medication Instructions Recorded amlodipine 5 mg tablet 5 mg PO DAILY #90 tabs 09/26/21 lisinopril 40 mg tablet 40 mg PO DAILY #90 tabs 09/26/21 Current Visit Medications: Current Medications Generic Name Dose Route Start Last Admin Trade Name Freq PRN Reason Stop Dose Admin Ringer's Solution 1,000 mls @ 80 mls/hr 03/06/22 06:00 03/06/22 06:44 IV 04/01/22 23:59 80 mls/hr INFUSION DAVID Administration Cefazolin Sodium/Dextrose 2 gm in 50 mls @ 100 mls/hr 03/06/22 06:00 Ancef Duplex IVPB 04/01/22 23:59 PREOP DAVID IV Miscellaneous Supplies 1 each 03/06/22 06:00 Iv Access IV 04/01/22 23:59 DIRECTED DAVID Sodium Chloride 0 ml 03/06/22 06:00 Normal Saline Flush 10 Ml Syr IV 04/01/22 23:59 PRN PRN Sodium Chloride 0 ml 03/06/22 06:00 Normal Saline 10 Ml Vial IJ 04/01/22 23:59 DIRECTED PRN Sterile Water 0 ml 03/06/22 06:00 Water,Injection,Sterile 10 Ml Vial IJ 04/01/22 23:59 DIRECTED PRN PFSH Active Problems Active Problems: Problem Status Onset Code Hypertension I10 Serrated adenoma of colon 05/23/15 D12.6 Smoker 02/21/15 F17.200 Diverticulosis of large intestine 02/21/15 K57.30 Hyperlipidemia E78.5 Carpal tunnel syndrome G56.00 Common wart B07.8 Left carpal tunnel syndrome G56.02 Medical History Medical History History of diverticulitis of colon Sciatica of right side (04/02/18) His blood pressure is out of control and will add metoprolol at bedtime. We will have to have him come back for recheck of blood pressure in the next month. He has again gained weight and is inactive. Serrated adenoma of colon rectum Medical History Comments:: cough - pt reports its smokers cough/phlegm stuck in throat, able to clear with coughing. Pt reports he has had smokers cough for years. Surgical History Surgical History (Updated 03/06/22 @ 06:38 by Aimee Camejo RN) Colonoscopy - IV Sedation 2014 Colonoscopy - MAC (08/13/16) History of back surgery pt reports he had back surgery 3 years ago at [facility] Status post correction of deviated nasal septum (02/21/15) Tobacco Smoking/Tobacco Use Status: Current every day Tobacco Type: cigarettes Smoking cigarettes per day: 10 Years smoked: 40 Passive smoking exposure: Yes Second hand exposure: Yes Alcohol Alcohol Intake: current Alcohol intake frequency: holidays/special occasions only Substance Use Substance use: Occasionally Substance use type: marijuana Details: last smokes marijuana 03/02/22 Vital Signs and Lab Results Vital Signs Most Recent Vital Signs in EMR: Most Recent Vital Signs Temp Pulse Resp BP Pulse Ox 36.5 C 72 18 148/92 H 96 03/06/22 06:23 03/06/22 06:23 03/06/22 06:23 03/06/22 06:23 03/06/22 06:23 Lab Results Blood Type / Crossmatch: No Data to Display Complete Blood Count: No Data to Display Complete Metabolic Panel: No Data to Display Liver Function Panel: No Data to Display Coagulation Panel: No Data to Display Cardiac Panel: No Data to Display Arterial Blood Gas: No Data to Display Venous Blood Gas: No Data to Display Pancreas Panel: No Data to Display Thyroid Panel: No Data to Display Infectious Disease: No Data to Display Blood Cultures: No Data to Display Toxicology Panel: No Data to Display Imaging and Studies Imaging and Studies Study information below may be from another EMR and interpreted by another provider. Please see original notes in EMR for more complete details. Stress Test Summary: Impressions: - The stress electrocardiography portion appears to be a false positive. - Normal myocardial perfusion and contraction after maximal exercise. Summary: 1. Myocardial perfusion imaging: No myocardial perfusion defects noted. 2. The calculated left ventricular ejection fraction after stress: 54%. LV global systolic function is normal. No left ventricular regional motion abnormality. 3. Stress ECG conclusions: The stress ECG is positive. Wild treadmill score: -1. This score predicts a moderate risk of cardiac events. 4. Stress: The target heart rate was achieved. There is a normal resting blood pressure with an appropriate response to stress. The patient experienced no chest pain during stress. Exercise capacity is average for age Impressions: Borderline study. Summary: 1. Stress ECG conclusions: The stress ECG is borderline. Wild treadmill score: 5. This score predicts a moderate risk of cardiac events. 2. Stress: The target heart rate was achieved. The heart rate response to stress is normal. There is a normal resting blood pressure with an appropriate response to stress. The patient experienced no chest pain during stress. Exercise capacity is normal for age. Recommendations: Stress myocardial perfusion imaging should be performed. Anesthesia Assessment and Plan Anesthesia History Personal History: No History of Anesthesia Complications Family History: No Family History of Anesthesia Complications Exercise Tolerance Exercise Tolerance: Metabolic Equivalents>4 Pertinent Negatives Pertinent Negatives: No Symptoms of GERD, No Major Cardiovascular Symptoms or Complaints, No Major Pulmonary Symptoms or Complaints and No History of CVA/TIA Cardiac & Pulmonary Exam Cardiac Exam: Normal S1/S2 Heart Sounds Pulmonary Exam: Clear Bilateral Breath Sounds Implantable Cardiac Device Does patient have a Pacemaker or an ICD?: No Airway Exam Known Difficult Airway: No Mallampati Class: 2 Mouth Opening: Normal (> 3cm) Thyromental Distance: Greater than 3 cm Neck Range of Motion: Full ROM Neck Circumference: Normal Teeth Condition: Normal Dentition ASA Classification ASA Score: ASA 2 Emergency Case?: No NPO Status NPO Status: NPO Clears >2 hours, Solids >8 hours Anesthesia Plan Resuscitation Status: Full Code Anesthesia Technique: MAC Anesthesia Airway Planned: Natural Airway Monitors Used: Standard Monitors
[2022-03-06 06:55] VITALS: BMI 37.0
--- NOTE | 2022-03-06 07:10 | W.PM.DSUDISC ---
Discharge Plan Disposition Patient Disposition: HOME Condition: Good Discharge Details Reason For Visit: Left Carpal tunnel syndrome Attending Provider: Dustin Leavitt Primary Care Provider: Carlee Schaffer Home Meds and New Rx's Prescriptions: New acetaminophen 500 mg tablet 500 mg PO Q6H PRN PRN (Reason: pain) Qty: 40 3RF hydrocodone-acetaminophen 5-325 mg tablet 1 tab PO Q6H PRN (Reason: pain) Qty: 3 0RF ibuprofen 600 mg tablet 600 mg PO TID PRN (Reason: pain) Qty: 60 3RF Continued lisinopril 40 mg tablet 40 mg PO DAILY Qty: 90 4RF amlodipine 5 mg tablet 5 mg PO DAILY Qty: 90 4RF Discharge Instructions Stand Alone Forms: Tree Rodriguez Tunnel Release Referrals: Dustin Leavitt MD [ [facility] STAFF PHYSICIAN] - Activity:: Elevate Remove Dressings/Wound Care:: 48 hours Shower/Bathe:: 48 hours Diet:: As Tolerated Discharge Orders Discharge Orders: Discharge Order (Routine); Ordered 03/06/22 Ordered By: Dustin Leavitt
[2022-03-06] MEDS: ceFAZolin 2 GM/50 ML BAG IVPB (07:23)
[2022-03-06] MEDS: Lidocaine 1% Multi-Dose W/EPI 1/100,000 50 ML VIAL (07:40)
[2022-03-06] MEDS: Sodium Bicarbonate 50 MEQ/50 ML VIAL (07:40)
[2022-03-06 07:53] VITALS: BP 129/78; PULSE 78; RESP 20; TEMP 35.8; O2SAT 93
[2022-03-06 08:23] VITALS: BP 118/80; PULSE 62; RESP 20; TEMP 36; O2SAT 97
--- NOTE | 2022-03-06 08:53 | W.ANESPOSTOP ---
Postoperative Evaluation Date, Time and Location Date Performed: 03/06/22 Time Performed: 08:45 Patient Location: Day Surgery Unit Vital Signs Most Recent Imported Vital Signs: Most Recent Vital Signs Temp Pulse Resp BP Pulse Ox 36 C L 62 20 118/80 97 03/06/22 08:23 03/06/22 08:23 03/06/22 08:23 03/06/22 08:23 03/06/22 08:23 Pain Score Most Recent Pain Score: Most Recent Pain Score Pain Level 0 03/06/22 08:23 Assessment Mental Status: Awake (Alert & Oriented to Patient Baseline) Airway and Respiratory Function: Patent airway with normal (patient baseline) respiratory exam Cardiovascular Function: Hemodynamically Stable Hydration Status: Adequately Hydrated Nausea & Vomiting: No Nausea or Vomiting Pain: Pt. Denies Any Pain Peripheral Nerve Block: Patient did not receive a nerve block
--- NOTE | 2022-03-06 11:06 | W.PM.OP ---
Date of service: 03/06/22 Time of Service: 07:40 Operative Note Operative Note DATE OF PROCEDURE: 03/06/22 PRE-OP DIAGNOSIS: Left Carpal Tunnel Syndrome POST-OP DIAGNOSIS: same PROCEDURE: Left Endoscopic Carpal Tunnel Release SURGEON: Dustin Leavitt ANESTHESIA TYPE: General:No Airway Refer to Anesthesia Record ESTIMATED BLOOD LOSS: 0 PATHOLOGY: none sent TOURNIQUET TIME: 9 COMPLICATIONS: None Patient was transported to: same day Patient's condition: stable Indications: I have seen Conor in clinic for symptoms of carpal tunnel syndrome. The numbness, tingling, and pain limited function. Clinical exam findings with nerve conduction tests confirmed the diagnosis of carpal tunnel syndrome. Nonoperative measures such as bracing, time, activity modifications had been tried but disability and pain persisted. I discussed carpal tunnel release with the patient. I reviewed the risks of the procedure to include, but not limited to, bleeding, infection, pain, stiffness, incomplete release, damage to nerves or vessels, persistent numbness, recurrence. Despite these risks, the patient elected to proceed. Findings: There was tightened carpal tunnel. This was dilated and released successfully with the endoscopic with increased space within the tunnel. The antebrachial fascia was released proximally freeing the median nerve at the wrist. Procedure Description: Conor was greeted in the preoperative holding area where the correct side was identified and marked. The consent was reviewed with the patient and signed. The history and physical was updated. All questions were answered. He was taken back to the operating room. The patient was placed into the supine position on the operating room table with the left arm on an arm board. A nonsterile tourniquet was placed high onto the arm. All bony prominences were well padded. Prophylactic antibiotics in the form of Cefazolin were administered. The left arm was then prepped with Chloraprep and draped in a standard fashion with stockinette and extremity drape. A timeout to confirm correct identity, side and site, procedure, allergies, anesthesia, and medical concerns was performed. The surgical site was marked in the volar wrist creases in line with the radial border of the fourth ray. This area was anesthetized with approximately 6cc of 1% Lidocaine. The limb was then exsanguinated with an Esmarch. The skin was incised with a 15 blade, approximately 1cm. The skin only was cut and the deeper tissue was dissected bluntly with a tenotomy scissor, avoiding passing nerve and venous structures. The fascia was penetrated and opened bluntly. A two-prong skin hook was placed under this proximal fascial edge. A series of hamate finders were used to identify and dilate the carpal tunnel. Synovial elevator was used to free synovial attachments to the underside of the transverse carpal ligament. My thumb was kept in the palm to pravin the distal extent of the carpal tunnel and correctly position the hand. The Microaire endoscope was inserted without difficulty and without resistance. Excellent visualization showed horizontally running fibers of the transverse carpal ligament (TCL). The distal extent of the TCL was visualized and the end of the scope palpated with the thumb. The blade was elevated and withdrawn from distal to proximal. The TCL was split into two flaps. The endoscope was reinserted to confirm complete release and any remnant ligament was incised. The scope was withdrawn and the proximal aspect of the carpal tunnel was grossly inspected and appeared release with the median nerve visible. The antebrachial fascia at the level of the wrist was then freed from the overlying skin and then the underlying median nerve with blunt dissection. This was transected longitudinally for about 3cm proximal to the wrist incision. The wound was then irrigated with easy flow of irrigant distally and proximally. The incision was closed with a single 4-0 Nylon suture. The wound was dressed with Xeroform, Gauze, Kerlix and Leo. The tourniquet was deflated with the initial dressing and held with some pressure. Blood flow returned easily to all digits with capillary refill less than 2 seconds. The patient tolerated the procedure well and was returned to the Same Day Surgery area in a stable condition suffering no known complication.
== END 2022-03-06 08:54 | disposition home or self-care (01) ==
PROVIDERS: PCP Nurse Practitioner; Visit Provider Student in an Organized Health Care Education/Training Program
PROC: 01N54ZZ Release Median Nerve, Percutaneous Endoscopic Approach (ICD-10-PCS; CPT 29848; principal; 2022-03-06 07:30)
DX: G56.02 Carpal tunnel syndrome, left upper limb (principal); I10 Essential (primary) hypertension; E78.5 Hyperlipidemia, unspecified; F17.210 Nicotine dependence, cigarettes, uncomplicated
CPT/HCPCS: 29848; J0690; J1885

== ENCOUNTER → 2022-04-16 01:49 | Outpatient (CLI) | payer MEDICAID, SELFPAY ==
--- NOTE | 2022-04-16 07:30 | DI.CTLCSR_ITS ---
Exam(s) CT CHEST LUNG CANCER SCREEN EXAM: CT CHEST LUNG CANCER SCREEN CLINICAL HISTORY: Screening for lung cancer,CURRENT SMOKER,F17.210. TECHNIQUE: Imaging Protocol: Low Dose Technique CONTRAST MATERIAL: None COMPARISON: CR XR CHEST 2V PA LATERAL from 12/25/2019 FINDINGS: CHEST: LUNGS: There is a 6 millimeter calcified granuloma left lower lobe.. There are no ominous noncalcifi ed either lung field and no pleural effusions. No significant focal findings trachea and mainstem br onchi. MEDIASTINUM: There is no obvious hilar nor mediastinal adenopathy. CARDIAC: Heart size is normal. There is no pericardial effusion.Caliber of the thoracic aorta is wit hin normal limits. OTHER: OSSEOUS: No significant osseous lesions.. IMPRESSION: 1. 6 millimeter calcified granuloma in the left lower lobe. No ominous noncalcified pulmonary nodule s 2. No intrathoracic adenopathy. 3. Lung RADS Cat 2 - Benign Appearance / Behavior: Nodules with a very low likelihood of becoming a c linically active cancer due to size or lack of growth Lung-RADS 1.0 CATEGORIES: Category 0 - Prior chest CT exam(s) being located for comparison. Category 1 - Annual screening in 12 months. No nodules or definitely benign nodules. Category 2 - Annual screening in 12 months. Benign appearance. Nodules with low likelihood of becomin g active cancer. Category 3 - 6-month follow-up. Probably benign. Short-term follow-up suggested. Nodules with low lik elihood of becoming active cancer. Category 4A - 3-month follow-up and CT/PET if >8 mm in size. Suspicious finding. Findings which requi re additional testing. Category 4B - Findings which require additional testing and tissue sampling. Category 4X - Category 3 or 4 nodules with additional features or imaging findings that increases the suspicion of malignancy. Modifier S- Potentially clinically significant findings (non lung cancer) RADIATION DOSE DELIVERED: 92.79mGy.cm Total DLP 2.21mGy CTDIvol DATA REPOSITORY: All CT scans at this facility are submitted to the National Radiology Data Registry (NRDR) Dose Index Registry (DIR) with the [employer] (A[employer]). RADIATION OPTIMIZATION: All CT scans at this facility use at least one of these dose optimization te chniques: automated exposure control; mA and/or kV adjustment per patient size (includes targeted exa ms where dose is matched to clinical indication); or iterative reconstruction.
== END ==
PROVIDERS: PCP Nurse Practitioner; Visit Provider Nurse Practitioner
DX: Z12.2 Encounter for screening for malignant neoplasm of respiratory organs (principal); F17.210 Nicotine dependence, cigarettes, uncomplicated; J84.10 Pulmonary fibrosis, unspecified
CPT/HCPCS: 71271

== ENCOUNTER 2022-07-23 06:46 | Day surgery (SDC) | payer MEDICAID, SELFPAY ==
--- NOTE | 2022-07-23 00:45 | COLE_ITS ---
Colonoscopy Report Date of procedure: 07/23/22 Pre-op diagnosis general: Screening colonoscopy Post-op diagnosis procedure note: other (diverticulosis, colo rectal polyps) Procedure: Screening colonoscopy Surgeon: Logan Kenny Anesthesia Type: General:No Airway Estimated blood loss (mL): 30 Pathology: other (Colon polyps) Complications: None Disposition: same day Indications: Conor is a 57-year-old male here for his next screening colonoscopy Procedure Start Time: 08:50 Procedure End Time: 09:13 Retraction Time: 19 Findings: diverticulosis, polyps at 70 cm 0.5 cm, 35 cm 0.5 cm, 25 cm 1.0 cm Procedure Description: After the induction of monitored anesthetic care, and with the patient in left lateral decubitus position, I began by performing an external anorectal exam.? Perineum and skin were normal, as was the anal verge.? There was no evidence of external hemorrhoids.? Next, I performed a digital rectal exam.? I did not appreciate any abnormal findings.? Next, I advanced a colonoscope into the rectal vault.? I performed retroflexion.? Using insufflation, I then advanced the colonoscope beyond the rectal folds and into the sigmoid colon before advancing towards the cecum.? The quality of the prep was adequate.? The scope was noted to be in the cecum by identification of the ileocecal valve and appendiceal orifice.? I then began withdrawing the colonoscope using repeated irrigation as necessary for full evaluation of the colonic mucosa. Around 70 cm from the anal verge I identified a 0.5 cm polyp. ?It appeared sessile in character. ?I was able to remove this with a cold forceps. Similarly, there were polyps that 35 cm and 25 cm. Both were sessile. The polyp at 35 cm was ab out 0.5 cm in size, and the other was about 1 cm in size. I performed polypectomy using cold forceps. ?I examined the sites, and there was minimal bleeding. ?Once this was completed, I continued to withdraw the scope and examine the remainder of the colonic mucosa.?Once the scope was withdrawn to the level of the rectum, great care was taken to examine portions of the rectal folds.? Finally, the scope was withdrawn and the patient was brought to the same-day surgery recovery unit as the anesthetic wore off. ?The findings and instructions were shared with the patient prior to discharge.
--- NOTE | 2022-07-23 00:45 | W.PM.DSUDISC ---
Discharge Plan Disposition Patient Disposition: HOME Condition: Good Discharge Details Reason For Visit: Screening colonoscopy Attending Provider: Logan Kenny Primary Care Provider: Carlee Schaffer Home Meds and New Rx's Prescriptions: Continued lisinopril 40 mg tablet 40 mg PO DAILY Qty: 90 4RF amlodipine 10 mg tablet 10 mg PO DAILY Qty: 90 4RF Discontinued bisacodyl [Dulcolax (bisacodyl)] 5 mg tablet,delayed release (DR/EC) 5 mg PO ONCE Qty: 4 0RF Rx Instructions: Take according to provider's instructions for colonoscopy prep. polyethylene glycol 3350 17 gram/dose powder 17 g PO ONCE Qty: 238 0RF Rx Instructions: To be taken as directed by prescriber's office for colonoscopy prep. Discharge Instructions Instructions: Colorectal Polyps (DC), Diverticulosis (DC) Additional Instructions: 1. If tolerated, consume a soft, low fiber diet for 1-2 days. [address] Do not drive, drink alcohol, operate machinery, make critical decisions, or do activities that require coordination or balance for 24 hours. 3. Because air was put into your colon during the procedure, expelling air from your rectum (passing gas or farting) is normal. 4. You may not have a bowel movement for 1-3 days because of the colonoscopy prep. This is normal. 5. Go directly to the emergency room if you notice any of the following: Develop chills (warm to touch), or if you have a thermometer and your temperature is above 101 Difficulty breathing or difficultly swallowing Persistent vomiting Severe abdominal pain, other than gas cramps Severe chest pain Black, tarry stools Any bleeding ? exceeding one tablespoon 6. Call your physician if the site where your intravenous was started becomes red, swollen, painful, and warm to touch. 7. Your physician has reviewed your pre-procedure medications. Please continue to take those medications as previously ordered. You will be given specific information/education regarding any changes to your medications before leaving. Activity:: Activity as Tolerated Diet:: As Tolerated Discharge Orders Discharge Orders: Discharge Order (Routine); Ordered 07/23/22 Ordered By: Logan Kenny DS: Diagnosis Discharge Diagnosis (1) Colorectal polyps: Status: Acute Asessment and Plan: My office will notify you of biopsy results.
[2022-07-23 07:11] VITALS: BP 137/101; PULSE 82; RESP 18; TEMP 36.5; O2SAT 97
[2022-07-23 07:15] VITALS: BP 137/101; PULSE 82; RESP 18; TEMP 36.5; O2SAT 97
[2022-07-23] MEDS: Lactated Ringers 1,000 ML 80 ML IV (07:25)
--- NOTE | 2022-07-23 08:26 | W.ANESPRE ---
General Info Date of Service Date Performed: 07/23/22 Height: 5 ft 9 in Weight: 108.2 kg Body Mass Index (BMI): 35.2 Surgical Procedure: Operation Date: 07/23/22 08:20 Proposed Procedure Side Surgeon p Colonoscopy Leila Snell MD Meds Allergies and Home Medications Allergies Allergy/AdvReac Type Severity Reaction Status Date / Time codeine Allergy Skin Rash Verified 07/23/22 07:13 Home Medication Medication Instructions Recorded lisinopril 40 mg tablet 40 mg PO DAILY #90 tabs 09/26/21 amlodipine 10 mg tablet 10 mg PO DAILY #90 tabs 04/20/22 Current Visit Medications: Current Medications Generic Name Dose Route Start Last Admin Trade Name Freq PRN Reason Stop Dose Admin Hyoscyamine Sulfate 0.125 mg 07/23/22 00:55 Hyoscyamine 0.125 Mg Sl/Oral/Chew SL DIRECTED PRN Ringer's Solution 1,000 mls @ 80 mls/hr 07/23/22 06:00 07/23/22 07:25 IV 07/23/22 23:59 80 mls/hr INFUSION DAVID Administration IV Miscellaneous Supplies 1 each 07/23/22 06:00 Iv Access IV 07/23/22 23:59 DIRECTED DAVID Ondansetron HCl 4 mg 07/23/22 00:55 Ondansetron 4 Mg/2 Ml Vial IVP Q4H PRN PRN Nausea / Vomiting Sodium Chloride 0 ml 07/23/22 06:00 Normal Saline Flush 10 Ml Syr IV 07/23/22 23:59 PRN PRN Sodium Chloride 0 ml 07/23/22 06:00 Normal Saline 10 Ml Vial IJ 07/23/22 23:59 DIRECTED PRN Sterile Water 0 ml 07/23/22 06:00 Water,Injection,Sterile 10 Ml Vial IJ 07/23/22 23:59 DIRECTED PRN PFSH Active Problems Active Problems: Problem Status Onset Code Hypertension I10 Serrated adenoma of colon 05/23/15 D12.6 Smoker 02/21/15 F17.200 Hyperlipidemia E78.5 Common wart B07.8 Medical History Medical History (Updated 07/23/22 @ 07:15 by Ruth Spain) Carpal tunnel syndrome Diverticulosis of large intestine (02/21/15) History of deviated nasal septum History of diverticulitis of colon Hx of essential hypertension Sciatica of right side (04/02/18) His blood pressure is out of control and will add metoprolol at bedtime. We will have to have him come back for recheck of blood pressure in the next month. He has again gained weight and is inactive. Serrated adenoma of colon rectum Medical History Comments:: cough - pt reports its smokers cough/phlegm stuck in throat, able to clear with coughing. Pt reports he has had smokers cough for years. Surgical History Surgical History Colonoscopy - IV Sedation 2014 Colonoscopy - MAC (08/13/16) History of back surgery pt reports he had back surgery 3 years ago at [facility] Left carpal tunnel syndrome s/p left ECTR DOS: 03/06/22 Status post correction of deviated nasal septum (02/21/15) Tobacco Smoking/Tobacco Use Status: Current every day Tobacco Type: cigarettes Smoking cigarettes per day: 11 Years smoked: 40 Passive smoking exposure: Yes Second hand exposure: Yes Alcohol Alcohol Intake: current Alcohol intake frequency: a few times a week Alcohol type: beer and hard liquor Details: 6 pack of beer or a pint of hard liquor 2-3 times a week Substance Use Substance use: Occasionally Substance use type: marijuana Details: alcohol: t-3, few drinks. Marijuana: t-1, one hit Vital Signs and Lab Results Vital Signs Most Recent Vital Signs in EMR: Most Recent Vital Signs Temp Pulse Resp BP Pulse Ox 36.5 C 82 18 137/101 H 97 07/23/22 07:15 07/23/22 07:15 07/23/22 07:15 07/23/22 07:15 07/23/22 07:15 Lab Results Blood Type / Crossmatch: No Data to Display Complete Blood Count: No Data to Display Complete Metabolic Panel: No Data to Display Liver Function Panel: No Data to Display Coagulation Panel: No Data to Display Cardiac Panel: No Data to Display Arterial Blood Gas: No Data to Display Venous Blood Gas: No Data to Display Pancreas Panel: No Data to Display Thyroid Panel: No Data to Display Infectious Disease: No Data to Display Blood Cultures: No Data to Display Toxicology Panel: No Data to Display Imaging and Studies Imaging and Studies Study information below may be from another EMR and interpreted by another provider. Please see original notes in EMR for more complete details. Stress Test Summary: Impressions: - The stress electrocardiography portion appears to be a false positive. - Normal myocardial perfusion and contraction after maximal exercise. Summary: 1. Myocardial perfusion imaging: No myocardial perfusion defects noted. 2. The calculated left ventricular ejection fraction after stress: 54%. LV global systolic function is normal. No left ventricular regional motion abnormality. 3. Stress ECG conclusions: The stress ECG is positive. Wild treadmill score: -1. This score predicts a moderate risk of cardiac events. 4. Stress: The target heart rate was achieved. There is a normal resting blood pressure with an appropriate response to stress. The patient experienced no chest pain during stress. Exercise capacity is average for age Impressions: Borderline study. Summary: 1. Stress ECG conclusions: The stress ECG is borderline. Wild treadmill score: 5. This score predicts a moderate risk of cardiac events. 2. Stress: The target heart rate was achieved. The heart rate response to stress is normal. There is a normal resting blood pressure with an appropriate response to stress. The patient experienced no chest pain during stress. Exercise capacity is normal for age. Recommendations: Stress myocardial perfusion imaging should be performed. Anesthesia Assessment and Plan Anesthesia History Personal History: No History of Anesthesia Complications Family History: No Family History of Anesthesia Complications Exercise Tolerance Exercise Tolerance: Metabolic Equivalents>4 Pertinent Negatives Pertinent Negatives: No Symptoms of GERD and No Major Cardiovascular Symptoms or Complaints Cardiac & Pulmonary Exam Cardiac Exam: Normal S1/S2 Heart Sounds Pulmonary Exam: Clear Bilateral Breath Sounds Implantable Cardiac Device Does patient have a Pacemaker or an ICD?: No Airway Exam Known Difficult Airway: No Mallampati Class: 2 Mouth Opening: Normal (> 3cm) Thyromental Distance: Greater than 3 cm Neck Range of Motion: Full ROM Neck Circumference: Normal Teeth Condition: Normal Dentition ASA Classification ASA Score: ASA 2 Emergency Case?: No NPO Status NPO Status: NPO Clears >2 hours, Solids >8 hours Anesthesia Plan Resuscitation Status: Full Code Anesthesia Technique: General Anesthesia Airway Planned: Natural Airway Monitors Used: Standard Monitors
[2022-07-23 08:29] VITALS: BMI 35.2
--- NOTE | 2022-07-23 09:00 | BOWEL_PTH ---
PATIENT: Conor Kahn LOC: [facility] U#:[id number] AGE/SX: 57/M ROOM: RE07/23/[address]: Logan Kenny MD : 1965 BED: DIS: 07/23/2022 SPEC #: [id number] RECD: 07/23/22 12:32 STATUS: GILMER REQ #: [id number] FLORENTINO: 07/23/22 09:[address]: Logan Kenny DEPT: Surgical Specimen RECD BY: Lola Virgen ENTERED: 07/23/22 12:32 SP TYPE: Bowel OTHR DR: Carlee Schaffer, PhD [employer] Tissues: 1 - BIOPSY BOWEL 2 - BIOPSY BOWEL 3 - BIOPSY BOWEL Procedures: GROSS AND MICRO LEVEL 4 Comments: [id number]
[2022-07-23 09:22] VITALS: BP 145/98; PULSE 85; RESP 18; TEMP 36.6; O2SAT 96
[2022-07-23 09:39] VITALS: BP 139/106; PULSE 76; RESP 18; TEMP 36; O2SAT 98
--- NOTE | 2022-07-23 10:09 | W.ANESPOSTOP ---
Postoperative Evaluation Date, Time and Location Date Performed: 07/23/22 Time Performed: 09:40 Patient Location: Day Surgery Unit Vital Signs Most Recent Imported Vital Signs: Most Recent Vital Signs Temp Pulse Resp BP Pulse Ox 36 C L 76 18 139/106 H 98 07/23/22 09:39 07/23/22 09:39 07/23/22 09:39 07/23/22 09:39 07/23/22 09:39 Pain Score Most Recent Pain Score: Most Recent Pain Score Pain Level 0 07/23/22 09:39 Assessment Mental Status: Awake (Alert & Oriented to Patient Baseline) Airway and Respiratory Function: Patent airway with normal (patient baseline) respiratory exam Cardiovascular Function: Hemodynamically Stable Hydration Status: Adequately Hydrated Nausea & Vomiting: No Nausea or Vomiting Pain: Pt. Denies Any Pain Peripheral Nerve Block: Patient did not receive a nerve block
== END 2022-07-23 10:07 | disposition home or self-care (01) ==
PROVIDERS: PCP Nurse Practitioner; Visit Provider Surgery
PROC: 0DJD8ZZ Inspection of Lower Intestinal Tract, Via Natural or Artificial Opening Endoscopic (ICD-10-PCS; CPT 45378; principal; 2022-07-23 08:15)
DX: Z12.11 Encounter for screening for malignant neoplasm of colon (principal); K63.5 Polyp of colon; K57.30 Diverticulosis of large intestine without perforation or abscess without bleeding
CPT/HCPCS: 45380; 88305; J2704

== ENCOUNTER 2022-08-24 01:35 | Outpatient (CLI) | payer MEDICAID, SELFPAY ==
[2022-08-24 13:04] LABS: Anion Gap 8.4 mmol/L (3-11); BUN 15 mg/dL (7-18); CO2 25.6 mmol/L (21.0-32.0); CREATININE 0.8 mg/dL (0.70-1.30); Calcium 8.7 mg/dL (8.5-10.1); Calculated LDL 167 mg/dL (<100); Chloride 102 mmol/L (98-107); Cholesterol 245 mg/dL (<200); Estimated GFR 103.87 (mL/min/1.73m2); Glucose 118 mg/dL (74-106); HDL Cholesterol 57 mg/dL (40-60); Potassium 4.2 mmol/L (3.5-5.1); Sodium 136 mmol/L (136-145); Triglyceride 105 mg/dL (<150)
== END 2022-08-24 01:36 | disposition home or self-care (01) ==
LOC: LOS 01:35
PROVIDERS: Nurse Practitioner; PCP Nurse Practitioner Family; Visit Provider Nurse Practitioner Family
DX: I10 Essential (primary) hypertension (principal); E78.5 Hyperlipidemia, unspecified
CPT/HCPCS: 36415; 80048; 80061

== ENCOUNTER → 2023-10-25 00:29 | Outpatient (CLI) | payer MEDICAID, SELFPAY ==
--- NOTE | 2023-10-25 07:15 | DI.CTLCSR_ITS ---
Exam(s) CT CHEST LUNG CANCER SCREEN EXAM: CT CHEST LUNG CANCER SCREEN CLINICAL HISTORY: Screening for lung cancer,current smoker, f17.210 TECHNIQUE: Imaging Protocol: Axial computed tomography images with coronal and sagittal reformatted images were created and reviewed. Low dose screening protocol. COMPARISON: CT CT CHEST LUNG CANCER SCREEN from 04/16/2022 FINDINGS: Tracheobronchial tree: No bronchiectasis or mucus plugging.. Mediastinum and Madison: No dominant adenopathy or fluid collection. Pulmonary parenchyma: No consolidation or dominant measurable mass. Mild emphysematous changes. Mild atelectasis or scarring posterior right lower lobe. Lung Nodules: Calcified granuloma left lower lobe. Pleura: No effusion. No pneumothorax. Heart: The heart is not dilated. No coronary artery calcifications are seen. Aorta: Thoracic aorta non-dilated. Upper abdomen: Unremarkable. Bones: Unremarkable for age. Soft Tissues: Unremarkable. IMPRESSION: No suspicious pulmonary nodules. Lung RADS Cat 2 - Benign Appearance / Behavior: Nodules with a very low likelihood of becoming a clin ically active cancer due to size or lack of growth Lung-RADS 1.0 CATEGORIES: Category 0 - Prior chest CT exam(s) being located for comparison. Category 1 - Annual screening in 12 months. No nodules or definitely benign nodules. Category 2 - Annual screening in 12 months. Benign appearance. Nodules with low likelihood of becomin g active cancer. Category 3 - 6-month follow-up. Probably benign. Short-term follow-up suggested. Nodules with low lik elihood of becoming active cancer. Category 4A - 3-month follow-up and CT/PET if >8 mm in size. Suspicious finding. Findings which requi re additional testing. Category 4B - Findings which require additional testing and tissue sampling. Category 4X - Category 3 or 4 nodules with additional features or imaging findings that increases the suspicion of malignancy. Modifier S- Potentially clinically significant findings (non lung cancer) RADIATION DOSE DELIVERED: 94.66mGy.cm Total DLP DATA REPOSITORY: All CT scans at this facility are submitted to the National Radiology Data Registry (NRDR) Dose Index Registry (DIR) with the [employer] (ACR). RADIATION OPTIMIZATION: All CT scans at this facility use at least one of these dose optimization te chniques: automated exposure control; mA and/or kV adjustment per patient size (includes targeted exa ms where dose is matched to clinical indication); or iterative reconstruction.
== END ==
PROVIDERS: PCP Nurse Practitioner Family; Visit Provider Nurse Practitioner Family
DX: F17.210 Nicotine dependence, cigarettes, uncomplicated (principal); Z12.2 Encounter for screening for malignant neoplasm of respiratory organs
CPT/HCPCS: 71271

== ENCOUNTER 2023-12-27 01:43 | Outpatient (CLI) | payer MEDICAID, SELFPAY ==
[2023-12-27 12:21] LABS: HCT 45.5 % (40.0-50.0); HGB 14.9 g/dL (13.5-17.5); MCH 29.4 pg (27.0-33.0); MCHC 32.7 % (32.0-36.0); MCV 90 fL (80-95); MPV 9.7 fL (8.0-11.0); Platelet Count 278 10^3/uL (130-400); RBC 5.06 10^6/uL (4.36-5.78); RDW 12.9 % (11.8-14.1); RDW-SD 42.5 fL; WBC 5.74 10^3/uL (4.4-10.8)
[2023-12-27 12:53] LABS: Anion Gap 7.8 mmol/L (3-11); BUN 25 mg/dL (7-18); CO2 27.2 mmol/L (21.0-32.0); Calcium 9.6 mg/dL (8.5-10.1); Calculated LDL 156 mg/dL (<100); Chloride 107 mmol/L (98-107); Cholesterol 252 mg/dL (<200); Estimated GFR 87.78 (mL/min/1.73m2); Glucose 135 mg/dL (74-106); HDL Cholesterol 47 mg/dL (40-60); Potassium 4.7 mmol/L (3.5-5.1); Sodium 142 mmol/L (136-145); TSH (W/Ref FT4) 2.26 uIU/mL (0.36-3.74); Triglyceride 248 mg/dL (<150)
[2023-12-27 21:02] LABS: Hepatitis C Ab w Rflx HCV PCR Reactive (Negative)
[2023-12-30 12:10] LABS: HCV RNA Qualitative Undetected (Undetected)
== END 2023-12-27 01:44 | disposition home or self-care (01) ==
LOC: LOS 01:43
PROVIDERS: PCP Nurse Practitioner Family; Visit Provider Nurse Practitioner Family
DX: Z00.00 Encounter for general adult medical examination without abnormal findings (principal); E78.5 Hyperlipidemia, unspecified; I10 Essential (primary) hypertension; F17.210 Nicotine dependence, cigarettes, uncomplicated
CPT/HCPCS: 36415; 80048; 80061; 85027; 86803; 87522; 83036; 84443

== ENCOUNTER 2024-10-27 09:08 | Outpatient (CLI) | payer MEDICAID, SELFPAY ==
[2024-10-27 12:54] LABS: HCT 46.6 % (40.0-50.0); HGB 15.3 g/dL (13.5-17.5); MCH 29.3 pg (27.0-33.0); MCHC 32.8 % (32.0-36.0); MCV 89 fL (80-95); MPV 9.2 fL (8.0-11.0); Platelet Count 273 10^3/uL (130-400); RBC 5.23 10^6/uL (4.36-5.78); RDW 12.7 % (11.8-14.1); RDW-SD 41.8 fL; WBC 4.83 10^3/uL (4.4-10.8)
[2024-10-27 13:20] LABS: ALT 32 U/L (16-63); AST 21 U/L (15-37); Albumin 3.9 g/dL (3.4-5.0); Alkaline Phosphatase 67 U/L (46-116); Anion Gap 6.9 mmol/L (3-11); BUN 19 mg/dL (7-18); Bilirubin, Total 0.51 mg/dL (0.2-1.0); CO2 26.1 mmol/L (21.0-32.0); CREATININE 0.9 mg/dL (0.70-1.30); Calcium 9.3 mg/dL (8.5-10.1); Calculated LDL 168 mg/dL (<100); Chloride 105 mmol/L (98-107); Cholesterol 250 mg/dL (<200); Glucose 120 mg/dL (74-106); HDL Cholesterol 64 mg/dL (40-60); Potassium 4.3 mmol/L (3.5-5.1); Sodium 138 mmol/L (136-145); Total Protein 7.6 g/dL (6.4-8.2); Triglyceride 91 mg/dL (<150)
[2024-10-27 13:21] LABS: Hemoglobin A1C 5.9 % (<5.7)
[2024-10-27 18:22] LABS: PSA, Screening 2.6 ng/mL (<=3.5)
== END 2024-10-27 09:09 | disposition home or self-care (01) ==
LOC: LOS 09:08
PROVIDERS: PCP Nurse Practitioner Family; Referring Provider Nurse Practitioner Family; Visit Provider Nurse Practitioner Family
DX: I10 Essential (primary) hypertension; E78.5 Hyperlipidemia, unspecified; F17.200 Nicotine dependence, unspecified, uncomplicated; Z12.5 Encounter for screening for malignant neoplasm of prostate; K42.9 Umbilical hernia without obstruction or gangrene
CPT/HCPCS: 36415; 80053; 80061; 84153; 85027; 83036

== ENCOUNTER 2024-11-05 02:27 | Outpatient (CLI) | payer MEDICAID, SELFPAY ==
--- NOTE | 2024-11-05 06:15 | DI.CTLCSR_ITS ---
Exam(s) CT CHEST LUNG CANCER SCREEN EXAM: CT CHEST LUNG CANCER SCREEN CLINICAL HISTORY: Screening for lung cancer,cigarette smoker, f17.210 TECHNIQUE: Imaging Protocol: Axial computed tomography images with coronal and sagittal reformatted images were created and reviewed. Lung Computer Aided Detection (CAD) was utilized. COMPARISON: CT CT CHEST LUNG CANCER SCREEN from 04/16/[address] CHEST LUNG CANCER SCREEN from 10/25/2023 FINDINGS: Tracheobronchial tree: Patent where visualized. No bronchiectasis. Pulmonary parenchyma: No consolidation or dominant measurable mass. No architectural distortion. Ther e is a calcified granuloma in the left lower lobe. Lung Nodules: There is a stable 3 mm nodule in the right middle lobe (series 2, image 85). There is a stable perifissural nodule associated with the left major fissure (series 2, image 75). No new pul monary nodules are present. Mediastinum and Madison: No dominant adenopathy or fluid collection. The esophagus is unremarkable. Thyroid gland: Unremarkable. Lymph nodes: Unremarkable. Pleura: No effusion or pneumothorax. Heart: The heart is not dilated. No coronary artery calcifications are seen. No pericardial effusion . Aorta: Thoracic aorta non-dilated.Mild atherosclerotic calcification is present. Upper abdomen: Unremarkable. Soft Tissues: Unremarkable. Bones: Within normal limits. IMPRESSION: Stable pulmonary nodules. No new pulmonary nodules. Lung RADS Cat 2 - Benign Appearance / Behavior: Nodules with a very low likelihood of becoming a clin ically active cancer due to size or lack of growth Lung-RADS 1.0 CATEGORIES: Category 0 - Prior chest CT exam(s) being located for comparison. Category 1 - Annual screening in 12 months. No nodules or definitely benign nodules. Category 2 - Annual screening in 12 months. Benign appearance. Nodules with low likelihood of becomin g active cancer. Category 3 - 6-month follow-up. Probably benign. Short-term follow-up suggested. Nodules with low lik elihood of becoming active cancer. Category 4A - 3-month follow-up and CT/PET if >8 mm in size. Suspicious finding. Findings which requi re additional testing. Category 4B - Findings which require additional testing and tissue sampling. Suspicious finding. Category 4X - Category 3 or 4 nodules with additional features or imaging findings that increases the suspicion of malignancy. Modifier S- Potentially clinically significant finding. (Non lung cancer) RADIATION DOSE DELIVERED: 108.6mGy.cm Total DLP 108.6mGy.cmTotal DLP DATA REPOSITORY: All CT scans at this facility are submitted to the National Radiology Data Registry (NRDR) Dose Index Registry (DIR) with the [employer] (ACR). RADIATION OPTIMIZATION: All CT scans at this facility use at least one of these dose optimization te chniques: automated exposure control; mA and/or kV adjustment per patient size (includes targeted exa ms where dose is matched to clinical indication); or iterative reconstruction.
== END 2024-11-05 02:47 ==
LOC: DI 02:27
PROVIDERS: PCP Nurse Practitioner Family; Visit Provider Nurse Practitioner Family
DX: F17.210 Nicotine dependence, cigarettes, uncomplicated (principal); Z12.2 Encounter for screening for malignant neoplasm of respiratory organs
CPT/HCPCS: 71271

== ENCOUNTER 2025-01-12 10:22 | Day surgery (SDC) | payer MEDICAID, SELFPAY ==
[2025-01-12] VITALS (45 sets, daily range): BP systolic 98–134; BP diastolic 67–94; PULSE 57–86; RESP 13–25; TEMP 36.3–36.9; O2SAT 88–96; BMI 39.6
--- NOTE | 2025-01-12 10:20 | W.SURGCON ---
Date of service: 01/12/25 Time of Service: 10:20 Assessment and Plan Assessment and plan (1) Umbilical hernia: Status: Acute Assessment and plan: 59-year-old man with a primary, reducible umbilical (ventral) hernia. He understands he is at significantly increased?risk for hernia recurrence and possible wound infections considering morbid obesity and ongoing, active smoking. He wants to proceed with surgery. Plan: Laparoscopic ventral hernia repair with mesh - IPOM History of Present Illness Narrative: 59-year-old man is here for a primary ventral hernia repair. He has no new questions and there are no new symptoms or concerns. PFSH All Active Problems Pre-diabetes (Acute) Umbilical hernia (Acute) Left shoulder pain (Acute) Started about jun 2022. Work in a meat packing plant. Was lifting heavy meat and his shoulder gave out. ROM is decrease with mild pain/discomfort. Hyperplastic colon polyp (Acute) Tubular adenoma of colon (Acute) Colorectal polyps (Acute) Hypertension (Chronic) Serrated adenoma of colon (Acute 05/23/15) 2014 Smoker (Acute 02/21/15) Hyperlipidemia (Acute) Common wart (Acute) Medical History Hx of hepatitis C Had thorough liver work up years ago and everything was fine. Hx of essential hypertension History of deviated nasal septum Carpal tunnel syndrome Diverticulosis of large intestine (02/21/15) Sciatica of right side (04/02/18) His blood pressure is out of control and will add metoprolol at bedtime. We will have to have him come back for recheck of blood pressure in the next month. He has again gained weight and is inactive. Serrated adenoma of colon rectum History of diverticulitis of colon Surgical History History of back surgery pt reports he had back surgery 3 years ago at [facility] Left carpal tunnel syndrome s/p left ECTR DOS: 03/06/22 Status post correction of deviated nasal septum (02/21/15) Colonoscopy - MAC (08/13/16) 07/2022 Colonoscopy - IV Sedation 2014 Family History (Updated 10/28/24 @ 08:17 by Martha Barrios) Mother No problems noted. Father , age 75 Hypertension Alcohol use disorder Heart disease Hyperlipidemia Sister No problems noted. Sister No problems noted. Maternal Grandfather , age 78 No problems noted. Paternal Grandfather , age 82 Alcohol use disorder Maternal Grandmother , age 74 No problems noted. Paternal Grandmother , age 70 No problems noted. Son No problems noted. Son No problems noted. Social History (Updated 10/28/24 @ 08:17 by Martha Barrios) Smoking/Tobacco Use Status: Current every day Tobacco Type: cigarettes Years smoked: 40 Tobacco: How many years used: 43 Quit status: not considering quitting Second Hand Exposure: Yes Smoking risk assessment performed?: Yes Alcohol Intake: current Alcohol Intake frequency: 3 or more drinks per day Alcohol type: beer and hard liquor Details: 3-4 drinks on typical day, 6 or more drinks weekly Drug use: Daily Substance use type: former substance user Date of last use: Former Crack/Cocaine and marijuana Adopted: No Caregiver/Support person: No Foster care: No Household members: spouse and children Housing: apartment Number of Children: 2 number of grandchildren: 0 Communication Needs: Hard of Hearing and Corrective Lenses Education Level: high school Details: 12th Do you need help understanding health information?: Never 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, hand trucker Pets and animals: Yes Pets and animals: cat(s) and dog(s) Sexually active: No Do you think of yourself as: straight/heterosexual Current gender identity: male What is your relationship status?: How often do you talk on the phone with friends or family?: three or more times per week How often do you get together with friends or relatives?: three or more times per week How often do you attend alevism or jain services?: 1-3 times per year Do you belong to any clubs or organized social groups?: no Panel score (0-1 are the most socially isolated patients): 2 What type of physical activity do you participate in: none Frequency: does not exercise Haylie/Protestant: Rastafari Special haylie needs: No Agree to transfusion: Yes Seatbelt use: always Helmet use: Yes Helmet use: always Drive intox or ride w/intox school bus driver/custodian: Yes Drive intox or w/intox school bus driver/custodian: rarely Working smoke detector in home: Yes Carbon monox detector in home: Yes Firearms in home: Yes Firearms unloaded and locked: No Do you feel safe at home: Yes Do you feel safe in your relationship?: Yes Victim of physical abuse: No Victim of emotional abuse: No Victim of sexual abuse: No Exam Narrative Exam Narrative: Gen: Non-toxic, comfortable and interactive Neuro: Alert and oriented x3 Psych: Good mood and affect. Good insight and understanding into condition. Chest: Non-labored breathing, no wheezing, no visible shortness of breath. Heart: Regular Abdomen: Obese, otherwise soft, nondistended and nontender. Soft, reducible umbilical hernia.
[2025-01-12] MEDS: Heparin 5,000 UNITS/ML VIAL 5000 UNITS SC (10:44)
[2025-01-12] MEDS: Gabapentin 300 MG CAP 600 MG PO (10:47)
[2025-01-12] MEDS: Celecoxib 200 MG CAP PO (10:47)
[2025-01-12] MEDS: Acetaminophen 500 MG TAB 1000 MG PO (10:47)
[2025-01-12] MEDS: Lactated Ringers 1,000 ML 80 ML IV (11:00)
--- NOTE | 2025-01-12 12:08 | W.ANESPRE ---
General Info Date of Service Date Performed: 01/12/25 Height: 5 ft 8 in Weight: 118.1 kg Body Mass Index (BMI): 39.6 Surgical Procedure: Operation Date: 01/12/25 11:10 Proposed Procedure Side Surgeon p Hernia Ventral Laparoscopic Amadou Lares MD Meds Allergies and Home Medications Allergies Allergy/AdvReac Type Severity Reaction Status Date / Time codeine Allergy Skin Rash Verified 01/12/25 10:37 Home Medication ?Medication ?Instructions ?Recorded amlodipine 10 mg tablet 10 mg PO DAILY #90 tabs 10/27/24 lisinopril 40 mg tablet 40 mg PO DAILY #90 tabs 10/27/24 Current Visit Medications: Current Medications Generic Name Dose Route Start Last Admin Trade Name Freq PRN Reason Stop Dose Admin Heparin Sodium (Porcine) 5,000 units 01/12/25 06:00 01/12/25 10:44 Heparin 5,000 Units/Ml Vial SC 01/12/25 23:59 5,000 units PREOP DAVID Administration Ringer's Solution 1,000 mls @ 80 mls/hr 01/12/25 09:50 01/12/25 11:00 IV 02/11/25 09:49 80 mls/hr INFUSION DAVID Administration IV Miscellaneous Supplies 1 each 01/12/25 09:50 Iv Access IV 02/11/25 09:49 DIRECTED DAVID Sodium Chloride 0 ml 01/12/25 09:50 Normal Saline Flush 10 Ml Syr IVP 02/11/25 09:49 PRN PRN Sodium Chloride 0 ml 01/12/25 09:50 Normal Saline Flush 10 Ml Syr IVP 02/11/25 09:49 BID DAVID Sodium Chloride 0 ml 01/12/25 09:50 Normal Saline 10 Ml Vial IJ 02/11/25 09:49 DIRECTED PRN PFSH Active Problems Active Problems: Problem Status Onset Code Pre-diabetes Acute R73.03 Umbilical hernia Acute K42.9 Left shoulder pain Acute M25.512 Hyperplastic colon polyp Acute K63.5 Tubular adenoma of colon Acute D12.6 Colorectal polyps Acute K63.5, K62.1 Hypertension Chronic I10 Serrated adenoma of colon Acute 05/23/15 D12.6 Smoker Acute 02/21/15 F17.200 Hyperlipidemia Acute E78.5 Common wart Acute B07.8 Medical History Medical History Hx of hepatitis C Had thorough liver work up years ago and everything was fine. Hx of essential hypertension History of deviated nasal septum Carpal tunnel syndrome Diverticulosis of large intestine (02/21/15) Sciatica of right side (04/02/18) His blood pressure is out of control and will add metoprolol at bedtime. We will have to have him come back for recheck of blood pressure in the next month. He has again gained weight and is inactive. Serrated adenoma of colon rectum History of diverticulitis of colon Surgical History Surgical History History of back surgery pt reports he had back surgery 3 years ago at [facility] Left carpal tunnel syndrome s/p left ECTR DOS: 03/06/22 Status post correction of deviated nasal septum (02/21/15) Colonoscopy - MAC (08/13/16) 07/2022 Colonoscopy - IV Sedation 2014 Tobacco Smoking/Tobacco Use Status: Current every day Tobacco Type: cigarettes Years smoked: 40 Passive smoking exposure: Yes Second hand exposure: Yes Alcohol Alcohol Intake: current Alcohol intake frequency: 3 or more drinks per day Alcohol type: beer and hard liquor Details: 3-4 drinks on typical day, 6 or more drinks weekly Substance Use Substance use: Daily Substance use type: former substance user Date of last use: Former Crack/Cocaine and marijuana Vital Signs and Lab Results Vital Signs Most Recent Vital Signs in EMR: Most Recent Vital Signs Temp Pulse Resp BP Pulse Ox 36.3 C L 71 16 134/94 H 96 01/12/25 10:23 01/12/25 10:23 01/12/25 10:23 01/12/25 10:23 01/12/25 10:23 Lab Results Blood Type / Crossmatch: No Data to Display Complete Blood Count: No Data to Display Complete Metabolic Panel: No Data to Display Liver Function Panel: No Data to Display Coagulation Panel: No Data to Display Cardiac Panel: No Data to Display Arterial Blood Gas: No Data to Display Venous Blood Gas: No Data to Display Pancreas Panel: No Data to Display Thyroid Panel: No Data to Display Infectious Disease: No Data to Display Blood Cultures: No Data to Display Toxicology Panel: No Data to Display Imaging and Studies Imaging and Studies Study information below may be from another EMR and interpreted by another provider. Please see original notes in EMR for more complete details. Stress Test Summary: Impressions: - The stress electrocardiography portion appears to be a false positive. - Normal myocardial perfusion and contraction after maximal exercise. Summary: 1. Myocardial perfusion imaging: No myocardial perfusion defects noted. 2. The calculated left ventricular ejection fraction after stress: 54%. LV global systolic function is normal. No left ventricular regional motion abnormality. 3. Stress ECG conclusions: The stress ECG is positive. Wild treadmill score: -1. This score predicts a moderate risk of cardiac events. 4. Stress: The target heart rate was achieved. There is a normal resting blood pressure with an appropriate response to stress. The patient experienced no chest pain during stress. Exercise capacity is average for age Impressions: Borderline study. Summary: 1. Stress ECG conclusions: The stress ECG is borderline. Wild treadmill score: 5. This score predicts a moderate risk of cardiac events. 2. Stress: The target heart rate was achieved. The heart rate response to stress is normal. There is a normal resting blood pressure with an appropriate response to stress. The patient experienced no chest pain during stress. Exercise capacity is normal for age. Recommendations: Stress myocardial perfusion imaging should be performed. Anesthesia Assessment and Plan Anesthesia History Personal History: No History of Anesthesia Complications Family History: No Family History of Anesthesia Complications Exercise Tolerance Exercise Tolerance: Metabolic Equivalents>4 Cardiac & Pulmonary Exam Cardiac Exam: Normal S1/S2 Heart Sounds Pulmonary Exam: Wheezing Present (RLL) Implantable Cardiac Device Does patient have a Pacemaker or an ICD?: No Airway Exam Known Difficult Airway: No Mallampati Class: 2 Mouth Opening: Normal (> 3cm) Thyromental Distance: Greater than 3 cm Neck Range of Motion: Full ROM Neck Circumference: Normal Teeth Condition: Normal Dentition ASA Classification ASA Score: ASA 3 Emergency Case?: No NPO Status NPO Status: NPO Clears >2 hours, Solids >8 hours Anesthesia Plan Resuscitation Status: Full Code Anesthesia Technique: General Anesthesia Airway Planned: Endotracheal Tube Monitors Used: Standard Monitors and SedLine
--- NOTE | 2025-01-12 13:03 | W.PM.DSUDISC ---
Date of service: 01/12/25 Discharge Plan Disposition Patient Disposition: Home Condition: Good Discharge Details Attending Provider: Amadou Lares Primary Care Provider: Saadia Morrow Home Meds and New Rx's Prescriptions: No Action amlodipine 10 mg tablet 10 mg PO DAILY Qty: 90 4RF lisinopril 40 mg tablet 40 mg PO DAILY Qty: 90 4RF Discharge Instructions Additional Instructions: INSTRUCTIONS: Incisions: Remove the tape and gauze on Saturday. After that, keep clean and dry but they do not need to be covered. It is okay to shower but no tub bathing for 1 week. You can peel the glue off after 1 week. Activity: As tolerated. Light duty without any heavy lifting/pulling or pushing for 6-8 weeks. Use abdominal binder at all times when up and out of bed for 8 weeks. You don't need to wear it while sleeping. Diet: Regular diet as tolerated. Medications: Resume all of your usual/regular home medications. Follow-up: If you are having any issues or concerns call the surgery office immediately. If you want to have a routine follow-up that is perfectly fine and you can call and schedule an. If everything is otherwise going well, you do not need to follow-up. Pain control: Take Tylenol, 1000 mg, every 6 hours on a schedule for the next 3 days. You can use ibuprofen in addition to Tylenol if needed. Ice can be used as needed. Overall: Symptoms should not be worsening. If you have any difficulty breathing or you have return of symptoms of brought you to the hospital or your pain is otherwise worsening each day and you should call the doctor's office or come into the hospital to be checked out. Stand Alone Forms: Anesthesia Discharge Inst., Concetta Galindo (U) Referrals: Amadou Lares MD [ [facility] STAFF PHYSICIAN] - 01/21/25 9:30 am Activity:: Activity as Tolerated Diet:: As Tolerated Discharge Orders Discharge Orders: Discharge Order (Routine); Ordered 01/12/25 Ordered By: Amadou Lares DS: Diagnosis Discharge Diagnosis (1) Umbilical hernia: Status: Acute
[2025-01-12] MEDS: Bupivacaine LIPOSOME/PF 133 MG/10 ML VIAL IJ (13:54)
[2025-01-12] MEDS: Bupivacaine 0.25% Pres-Free 30 ML VIAL (13:54)
--- NOTE | 2025-01-12 14:32 | W.PM.OP ---
Operative Note Operative Note Refer to Anesthesia Record Procedure Description: PROCEDURES PERFORMED: 1. Laparoscopic ventral hernia repair with mesh (IPOM) 2. Laparoscopic bilateral TAP block Preoperative Diagnosis: Reducible primary umbilical hernia Postoperative Diagnosis: Incarcerated primary umbilical hernia Surgeon: Winsome Lares Assist: None Anesthesia: General Anesthesiologist: Louisa Indication: Primary umbilical hernia that is reducible but spontaneously recurs. Findings: Single tongue of omentum adherent and incarcerated to the hernia sac. This was lysed. The defect was primarily approximated with Vicryl suture. There is no significant tension. A 4.5 inch Bard Ventralight mesh was buttressed against the primary repair in typical IPOM fashion. Complications: None Estimated Blood Loss: (5cc) Scant Specimens removed: None Grafts or implants: Bard Ventralight mesh Procedure in detail: Written consent was obtained from the patient who was in agreement with the risks, the benefits and the indications for the procedure. The patient was taken to the operating suite and laid supine on the operating table with left arm tucked. IV antibiotics were given and DVT prophylaxis had been given. Venodynes were in place. General anesthesia was administered which was tolerated very well. We then prepped and draped the abdomen in sterile fashion. A timeout was performed. When we were all in agreement we began the procedure. Local anesthetic was injected at each trocar site. Just beneath the left costal margin, a small stab incision was made and a 5 mm Optiview trocar was used to enter into the abdomen under direct visualization. The umbilical hernia defect was visible with incarcerated omentum. This was able to be easily reduced however there was a single band/adhesion keeping the omentum against the hernia sac consistent with chronic incarceration. The liver was inspected and did not appear cirrhotic, but it did appear fatty. 2 other ports were placed under direct visualization. The 12 mm port was placed mid- abdomen. A bilateral TAP block was performed under laparoscopic vision with a mixture of Exparel and bupivacaine. I divided the single adhesion freeing up the omentum out of the defect. Next I divided the peritoneum lining/hernia sac with the LigaSure circumferentially. This nicely exposed the fascia of the defect and created healthy fresh edges to be reapproximated. Using a Dru-Isela I was able to pass large Vicryl suture in interrupted fashion and primarily closed the defect. Next I buttressed my closure with a Ventralight mesh using the echo positioning system and used an absorbable tacker to fix it in place. I removed all the positioning hardware of the mesh from out of the intra-abdominal cavity. Hemostasis was excellent. I closed the 12 mm port defect with 0 Vicryl. The 5 mm ports were removed. I closed the skin with Monocryl and put Dermabond on top. The sponge, instrument and sharps count was correct x3 at the end of the procedure. The patient tolerated the procedure well and was taken to the PACU in hemodynamically stable condition. Date of Procedure: 01/12/25
--- NOTE | 2025-01-12 16:36 | W.ANESPOSTOP ---
Postoperative Evaluation Date, Time and Location Date Performed: 01/12/25 Time Performed: 16:36 Patient Location: Day Surgery Unit Vital Signs Most Recent Imported Vital Signs: Most Recent Vital Signs Temp Pulse Resp BP Pulse Ox 36.3 C L 57 L 18 98/73 L 92 01/12/25 16:05 01/12/25 16:05 01/12/25 16:05 01/12/25 16:05 01/12/25 16:05 Pain Score Most Recent Pain Score: Most Recent Pain Score Pain Level 3 01/12/25 16:05 Assessment Mental Status: Awake (Alert & Oriented to Patient Baseline) Airway and Respiratory Function: Patent airway with normal (patient baseline) respiratory exam Cardiovascular Function: Hemodynamically Stable Hydration Status: Adequately Hydrated Nausea & Vomiting: No Nausea or Vomiting Pain: Pain is tolerable per patient Peripheral Nerve Block: Patient did not receive a nerve block
== END 2025-01-12 17:18 | disposition home or self-care (01) ==
PROVIDERS: PCP Nurse Practitioner Family; Visit Provider Student in an Organized Health Care Education/Training Program
PROC: 0WQF4ZZ Repair Abdominal Wall, Percutaneous Endoscopic Approach (ICD-10-PCS; CPT 49592; principal; 2025-01-12 11:00)
DX: K42.0 Umbilical hernia with obstruction, without gangrene (principal)
CPT/HCPCS: 49592; C1781; J0665; J0666; J0690; J1100; J1644; J1920; J2003; J2250; J2371; J2404; J2405; J2704; J3010; J3475; J7620